=== PATIENT | female | born 1940 | race Caucasian/White ===

== ENCOUNTER → 2017-07-18 15:55 | Outpatient (CLI) | payer MEDICARE, OTHER, SELFPAY ==
[2017-07-18 16:10] LABS: Absolute Lymphocyte Count 1.85 X10^3/ul (0.83-4.51); Absolute Neutrophil Count 4.5 X10^3/uL (2.0-7.7); Basophil# 0.02 X10^3/uL; Basophil% 0.3 % (0-1); Eosinophil# 0.14 X10^3/uL; Eosinophils% 1.9 % (0-5); Hematocrit 42.4 % (37-47); Hemoglobin 13.7 g/dl (12.0-15.0); Lymphocyte # 1.85 X10^3/ul (4.0); Lymphocyte % 25.3 % (19-41); Mean Corp Hgb Conc 32.3 g/gl (32-36); Mean Corpuscular Hgb 29.4 pg (27.0-32.0); Mean Platelet Vol. 11.7 fl (6.2-12.0); Monocyte# 0.79 X10^3/uL; Monocyte% 10.8 % (0-10); Neutrophil # 4.49 X10^3/uL (2.7-7.7); Neutrophil % 61.4 % (47-70); Platelet Count 182 K/mm3 (150-450); RBC Distribution Width SD 46.1 fl (35.1-43.9); Red Blood Count 4.66 M/mm3 (4.2-5.4); White Blood Count 7.3 K/mm3 (4.4-11.0)
[2017-07-18 16:11] LABS: POSITIVE COUNT NO; POSITIVE DIFFERENTIAL NO; POSITIVE MORPHOLOGY NO
[2017-07-18 16:30] LABS: ALB/GLOB Ratio 1.2 RATIO (0.9-2.4); AST(SGOT) 23 U/L (15-37); Alanine Aminotransfer ALT/SGPT 28 U/L (13-56); Albumin, Serum 3.7 g/dL (3.2-5.0); Alkaline Phosphatase 94 U/L (45-117); Anion Gap 8 (5-15); BUN 19 mg/dL (7-18); BUN/Creat Ratio 15.1 RATIO (10-20); Calcium,Total 8.8 mg/dL (8.5-10.1); Chloride 106 mmol/L (98-107); Creatinine, Serum 1.26 mg/dL (0.55-1.02); EST Glomerular Filtration Rate 44 mL/min (>60); Est Glom Filt Rate - Afr Amer 53 mL/min (>60); Globulin 3.2 g/dL (2.2-4.2); Glucose 143 mg/dL (74-106); Potassium 4.2 mmol/L (3.5-5.1); Protein, Total 6.9 g/dL (6.4-8.2); Sodium Level 143 mmol/L (136-145)
== END ==
PROVIDERS: Family Provider Nurse Practitioner; PCP Nurse Practitioner; Visit Provider Nurse Practitioner Gerontology
DX: R06.02 Shortness of breath (principal)
CPT/HCPCS: 80053; 85025; 85379

== ENCOUNTER → 2017-07-19 08:50 | Outpatient (CLI) | payer MEDICARE, OTHER, SELFPAY ==
--- NOTE | 2017-07-19 09:23 | CT_ITS ---
STUDY: CTA CHEST REASON FOR EXAM: Female, 77 years old. Elevated d-dimer. RADIATION DOSAGE (If Supplied By Facility): CTDIvol = ( 19.28 ) mGy, DLP = ( 475.78 ) mGycm TECHNIQUE: The examination was performed with the intravenous administration of 100 ml of Isovue 370 contrast material. Post-processing of the angiographic images was performed, with multiplanar reformation and 3D reconstruction. Individualized dose optimization techniques were used for this CT. COMPARISON: None. FINDINGS: There are several nonocclusive intraluminal filling defects in branches of the left upper lobe pulmonary arterial branches in keeping with nonocclusive pulmonary emboli. Normal thoracic aorta and visualized great vessels. There is no demonstrated aortic dissection. There are calcifications of the coronary arteries. Normal mediastinum. Normal hilar regions. Normal visualized trachea and bronchi. The lungs are well expanded. Mild degree of increased linear markings at the lung bases suggesting mild bibasilar atelectasis and/or scarring. Focal linear density measuring 1.3 cm x 0.5 cm is seen in the lingular segment of the left upper lobe suggestive of scarring. Calcified granuloma in the right middle lobe. Normal pleura. Normal chest wall structures. There are degenerative changes of thoracic spine. Normal visualized upper abdomen. CT/CTA Chest W/WO Contrast IMPRESSION: Multiple small nonocclusive intraluminal filling defect seen in the branches of the left upper lobe pulmonary arterial branches. Electronically Signed: Endy Forbes MD at 14:12 EDT Tel [phone], Service support ,
--- NOTE | 2017-07-19 15:53 | VDLE_ITS ---
Reason For Study: PE RIGHT LEFT GSV is normal. GSV is normal. CFV is compressible, spontaneous, phasic, CFV is compressible, spontaneous, phasic, competent and demonstrates normal competent, and demonstrates normal augmentation. augmentation. FV is compressible, spontaneous, phasic, FV is compressible, spontaneous, phasic, competent and demonstrates normal competent and demonstrates normal augmentation. augmentation. POP V is compressible, spontaneous, phasic, POP V is compressible, spontaneous, phasic, competent and demonstrates normal competent and demonstrates normal augmentation. augmentation. T/P Trunk is compressible. T/P Trunk is compressible. PTV is compressible. PTV is compressible. RT PerV is compressible. LT PerV is compressible. Procedure Exam performed in department. A preliminary report was called and/or faxed to George Kapadia. Interpretation Summary Deep veins of the lower extremities are bilaterally patent and compressible segmentally. There is no evidence of deep vein thrombosis on either side. Valvular competence appears intact within the proximal deep venous systems bilaterally. The greater saphenous veins appear bilaterally patent and compressible segmentally. Ordering Physician: Loan Kapadia Referring Physician: Loan Kapadia Performed By: Stephanie Tinajero RVT
== END ==
PROVIDERS: Family Provider Nurse Practitioner; PCP Nurse Practitioner; Visit Provider Nurse Practitioner
DX: I26.99 Other pulmonary embolism without acute cor pulmonale (principal); R74.8 Abnormal levels of other serum enzymes
CPT/HCPCS: 71275; 93970; Q9967; A4216

== ENCOUNTER 2017-10-10 12:50 | Outpatient (RCR) | payer MEDICARE, OTHER, SELFPAY | END 2017-10-12 23:59 | LOC: DC 12:50 | PROVIDERS: Family Provider Nurse Practitioner; PCP Nurse Practitioner; Visit Provider Nurse Practitioner | DX: E11.9 Type 2 diabetes mellitus without complications (principal); Z71.3 Dietary counseling and surveillance | CPT/HCPCS: G0108 ==

== ENCOUNTER → 2017-10-25 06:21 | Outpatient (CLI) | payer MEDICARE, OTHER, SELFPAY ==
--- NOTE | 2017-10-25 11:23 | STRESSREP ---
Stress Test Report Pharmacologic myocardial perfusion stress test. 77-year-old lady with a history of dyspnea. Medications atorvastatin ramipril metoprolol. Stress protocol: Resting EKG demonstrates sinus rhythm with rate of 61 bpm normal intervals and noted resting blood pressures 118/76 centimeters of mercury. 0.4 mg of regadenoson was infused per usual protocol followed by rapid intravenous saline flush injection continuous EKG monitoring was performed. The maximum heart rate attained was 80 bpm which was 55% of maximum predicted heart rate the maximum workload was 1 metabolic equivalent. At rest there were no ST or T-wave changes noted to suggest abnormal flow reserve at peak infusion no ST or T-wave changes were noted suggest abnormal flow reserve. The resting blood pressure is 118/76 with a final blood pressure 128/70. Myocardial perfusion protocol. 11.9 mCi of technetium 99m sestamibi was injected at rest. 0.4 mg regadenoson was infused per usual protocol peak infusion 33.6 mCi of technetium 99m sestamibi was injected stress images were obtained stress and rest images were reconstructed and compared in the short axis vertical long and horizontal long axis. Gated images were also obtained pre- Perfusion SPECT analysis: Review of the stress images demonstrate normal uptake of tracer noted in all areas of the myocardium. The resting images similarly demonstrate normal uptake of tracer noted in all areas of the myocardium. No areas of reversibility are noted suggest ischemia and no previous infarct is noted. Gated SPECT analysis: The gated ejection fraction is 72%. Conclusion: Normal pharmacologic myocardial perfusion stress test. Preserved ejection fraction.
--- NOTE | 2017-10-25 11:26 | STRESSREP_ITS ---
Stress Test Report Pharmacologic myocardial perfusion stress test. 77-year-old lady with a history of dyspnea. Medications atorvastatin ramipril metoprolol. Stress protocol: Resting EKG demonstrates sinus rhythm with rate of 61 bpm normal intervals and noted resting blood pressures 118/76 centimeters of mercury. 0.4 mg of regadenoson was infused per usual protocol followed by rapid intravenous saline flush injection continuous EKG monitoring was performed. The maximum heart rate attained was 80 bpm which was 55% of maximum predicted heart rate the maximum workload was 1 metabolic equivalent. At rest there were no ST or T- wave changes noted to suggest abnormal flow reserve at peak infusion no ST or T- wave changes were noted suggest abnormal flow reserve. The resting blood pressure is 118/76 with a final blood pressure 128/70. Myocardial perfusion protocol. 11.9 mCi of technetium 99m sestamibi was injected at rest. 0.4 mg regadenoson was infused per usual protocol peak infusion 33.6 mCi of technetium 99m sestamibi was injected stress images were obtained stress and rest images were reconstructed and compared in the short axis vertical long and horizontal long axis. Gated images were also obtained pre- Perfusion SPECT analysis: Review of the stress images demonstrate normal uptake of tracer noted in all areas of the myocardium. The resting images similarly demonstrate normal uptake of tracer noted in all areas of the myocardium. No areas of reversibility are noted suggest ischemia and no previous infarct is noted. Gated SPECT analysis: The gated ejection fraction is 72%. Conclusion: Normal pharmacologic myocardial perfusion stress test. Preserved ejection fraction.
== END ==
PROVIDERS: Family Provider Nurse Practitioner; PCP Nurse Practitioner; Visit Provider Internal Medicine Pulmonary Disease
DX: R06.00 Dyspnea, unspecified (principal)
CPT/HCPCS: 78452; 93017; A9500; A4216; J2785

== ENCOUNTER 2017-11-07 09:32 | Outpatient (RCR) | payer MEDICARE, OTHER, SELFPAY | END 2017-11-12 23:59 | LOC: DC 09:32 | PROVIDERS: Family Provider Nurse Practitioner; PCP Nurse Practitioner; Visit Provider Nurse Practitioner | DX: E11.9 Type 2 diabetes mellitus without complications (principal); Z71.3 Dietary counseling and surveillance | CPT/HCPCS: 97802 ==

== ENCOUNTER 2018-01-09 10:00 | Outpatient (RCR) | payer MEDICARE, OTHER, SELFPAY | END 2018-01-12 23:59 | LOC: DC 10:00 | PROVIDERS: Family Provider Nurse Practitioner; PCP Nurse Practitioner; Visit Provider Nurse Practitioner | DX: E11.9 Type 2 diabetes mellitus without complications (principal); Z71.3 Dietary counseling and surveillance | CPT/HCPCS: 97803; G0109 ==

== ENCOUNTER 2018-01-16 08:41 | Outpatient (RCR) | payer MEDICARE, OTHER, SELFPAY | END 2018-02-12 23:59 | LOC: DC 08:41 | PROVIDERS: Family Provider Nurse Practitioner; PCP Nurse Practitioner; Visit Provider Nurse Practitioner | DX: E11.9 Type 2 diabetes mellitus without complications (principal); Z71.3 Dietary counseling and surveillance | CPT/HCPCS: G0109 ==

== ENCOUNTER 2018-03-13 10:00 | Outpatient (RCR) | payer MEDICARE, OTHER, SELFPAY | END 2018-03-14 23:59 | LOC: DC 10:00 | PROVIDERS: Family Provider Nurse Practitioner; PCP Nurse Practitioner; Visit Provider Nurse Practitioner | DX: E11.9 Type 2 diabetes mellitus without complications (principal); Z71.3 Dietary counseling and surveillance | CPT/HCPCS: 97803; G0109 ==

== ENCOUNTER → 2018-06-05 09:35 | Outpatient (CLI) | payer MEDICARE, OTHER, SELFPAY ==
--- NOTE | 2018-06-05 09:38 | BI_ITS ---
MAMMOGRAPHY - BILATERAL SCREENING REASON FOR EXAM: Female, 78 years old. Routine annual screening examination. PERTINENT HISTORY: Non-contributory. Right breast nipple tenderness. TECHNIQUE: Digital bilateral breast cholo (3D mammographic acquisition) in the CC and MLO projections. 2-D mediolateral oblique (MLO) and craniocaudad (CC) views of both breasts were obtained. CAD: Full Field Digital Mammography with Computer Added Detection was performed. COMPARISON: Comparison is made with prior study dated March 27, 2017 and January 23, 2016. FINDINGS: Breast Composition: There are scattered areas of fibroglandular density. There are no dominant masses or suspicious calcifications. Stable benign-appearing bilateral axillary lymph nodes. No other significant abnormalities are identified. There has been no significant change since the prior study. BI/SCREENING MAMM (CAD), BILAT IMPRESSION: Stable bilateral screening mammogram. Yearly follow-up mammogram recommended. (A) ASSESSMENT CATEGORY: BIRADS Category 2: Benign. A letter regarding these results will be sent to the patient by the facility within 30 days. Approximately 10% of breast cancers are not detected by mammography. A normal mammogram should not delay biopsy of a clinically suspicious abnormality. [id number] Electronically Signed: Endy Forbes MD at 12:30 EST , Service support ,
--- NOTE | 2018-06-05 09:40 | BD_ITS ---
STUDY: DUAL ENERGY X-RAY ABSORPTIOMETRY / DXA REASON FOR EXAM: Female, 78 years old. Early menopause. Loss of height. TECHNIQUE: Bone Mineral Density (BMD) measurements of lumbar spine and bilateral hips were obtained. COMPARISON: Comparison is made with prior study dated June 08, 2014. FINDINGS: Lumbar Spine (L1-L4): g/cm2 (1.218) / T-score (0.3) / Z-score (2.1) Findings are suggestive of normal bone density with a low fracture risk. Left Femur Total: g/cm2 (0.985) / T-score (0.2) / Z-score (1.7) Left Femoral Neck: g/cm2 (0.853) / T-score (-1.3) / Z-score (0.7) Right Femur Total: g/cm2 (0.947) / T-score (-0.5) / Z-score (1.4) Right Femoral Neck: g/cm2 (0.914) / T-score (-0.9) / Z-score (1.2) The T-Scores on the most recent prior examination were: Lumbar Spine (L1-L4): There has been worsening of bone density since the previous examination. Left Femur Total: which represents an improvement of 1.5%. Right Femur Total: which represents a worsening of 2.5%. BD/Dexa Bone Density Study IMPRESSION: The patient is considered osteopenic as outlined below according to World Parker Organization (WHO) criteria with a low fracture risk. There has been worsening of bone density since the previous examination. Reference Information: The T-score is the number of standard deviations above or below the standard which is normal for young adults at their peak bone mineral density. The World Health Organization (WHO) interprets the T-scores as follows: Above -1 Normal bone density Between -1 and -2.5 Osteopenia Equal to / or below -2.5 Osteoporosis As a practical clinical guideline, osteopenia may be graded as follows: Mild -1 through -1.5 Moderate -1.6 through -2.0 Severe -2.1 through -2.4 The Z-score is the number of standard deviations above or below age-matched controls. A Z-score of less than -1.5 would be considered abnormal. References: 1. NIH Osteoporosis and Related Bone Diseases http://www.osteo.org 2. International Society for Clinical Densitometry http://www.iscd.org 3. National Osteoporosis Foundation http://www.nof.org Electronically Signed: Endy Forbes MD at 12:51 EST , Service support ,
== END ==
PROVIDERS: Family Provider Nurse Practitioner; PCP Nurse Practitioner; Visit Provider Nurse Practitioner
DX: Z12.31 Encounter for screening mammogram for malignant neoplasm of breast (principal); Z78.0 Asymptomatic menopausal state; M85.80 Other specified disorders of bone density and structure, unspecified site
CPT/HCPCS: 77063; 77067; 77080

== ENCOUNTER 2018-06-19 13:18 | Outpatient (RCR) | payer MEDICARE, OTHER, SELFPAY | END 2018-06-19 23:59 | disposition home or self-care (01) | LOC: DC 13:18 | PROVIDERS: Family Provider Nurse Practitioner; PCP Nurse Practitioner; Visit Provider Nurse Practitioner | DX: E11.9 Type 2 diabetes mellitus without complications (principal); Z71.3 Dietary counseling and surveillance | CPT/HCPCS: G0109 ==

== ENCOUNTER → 2018-07-21 | Outpatient (CLI) | payer MEDICARE, OTHER, SELFPAY ==
[2018-07-21 12:33] LABS: Homocysteine 7.4 umol/L (3.2-10.7)
[2018-07-21 12:43] LABS: Absolute Lymphocyte Count 1.35 X10^3/ul (0.83-4.51); Absolute Neutrophil Count 3.1 X10^3/uL (2.0-7.7); Basophil# 0.01 X10^3/uL; Basophil% 0.2 % (0-1); Eosinophil# 0.11 X10^3/uL; Eosinophils% 2.2 % (0-5); Hematocrit 43.8 % (37-47); Hemoglobin 13.9 g/dl (12.0-15.0); Lymphocyte # 1.35 X10^3/ul (4.0); Lymphocyte % 26.6 % (19-41); Mean Corp Hgb Conc 31.7 g/gl (32-36); Mean Corpuscular Volume 91.3 fL (81-99); Mean Platelet Vol. 11.4 fl (6.2-12.0); Monocyte# 0.53 X10^3/uL; Monocyte% 10.4 % (0-10); Neutrophil # 3.08 X10^3/uL (2.7-7.7); Neutrophil % 60.6 % (47-70); Platelet Count 173 K/mm3 (150-450); RBC Distribution Width CV 14.2 % (11.6-14.6); RBC Distribution Width SD 47.5 fl (35.1-43.9); White Blood Count 5.1 K/mm3 (4.4-11.0)
[2018-07-21 12:52] LABS: POSITIVE COUNT NO; POSITIVE DIFFERENTIAL NO; POSITIVE MORPHOLOGY NO
[2018-07-21 13:20] LABS: AST(SGOT) 23 U/L (15-37); Alanine Aminotransfer ALT/SGPT 26 U/L (13-56); Albumin, Serum 3.7 g/dL (3.2-5.0); Alkaline Phosphatase 86 U/L (45-117); Anion Gap 6 (5-15); BUN 13 mg/dL (7-18); BUN/Creat Ratio 10.7 RATIO (10-20); Calcium,Total 8.8 mg/dL (8.5-10.1); Chloride 107 mmol/L (98-107); Cholesterol 157 mg/dL (200); Creatinine, Serum 1.21 mg/dL (0.55-1.02); EST Glomerular Filtration Rate 46 mL/min (>60); Est Glom Filt Rate - Afr Amer 55 mL/min (>60); Globulin 3.6 g/dL (2.2-4.2); Glucose 140 mg/dL (74-106); High Density Lipoprotein 51 mg/dL; Protein, Total 7.3 g/dL (6.4-8.2); Sodium Level 141 mmol/L (136-145); Thyroid Stim Hormone (TSH) 1.46 uIU/mL (0.358-3.74); Triglycerides 106 mg/dL; Very Low Density Lipoprotein 21 mg/dL (5-40)
[2018-07-25 17:38] LABS: Dilute Prothrombin Time (dPT) 46.8 sec (0.0-55.0); Dilute Russell Viper Venom 36.7 sec (0.0-47.0); PTT-LA 35.8 sec (0.0-51.9); Thrombin Time 18.7 sec (0.0-23.0); dPT Confirm Ratio 1.08 Ratio (0.00-1.40)
[2018-07-26 15:37] LABS: Antithrombin 3 Function 88 % (75-135); Interpretation Comment: (.); Protein C Antigen 98 % (60-150)
== END | disposition home or self-care (01) ==
PROVIDERS: Family Provider Nurse Practitioner; PCP Nurse Practitioner; Referring Provider Internal Medicine Pulmonary Disease; Visit Provider Internal Medicine Pulmonary Disease
DX: E11.9 Type 2 diabetes mellitus without complications (principal); Z79.899 Other long term (current) drug therapy; Z86.711 Personal history of pulmonary embolism
CPT/HCPCS: 36415; 80053; 80061; 81240; 81241; 83090; 84443; 85025; 85300; 85302; 86147

== ENCOUNTER → 2018-08-01 | Outpatient (CLI) | payer MEDICARE, OTHER, SELFPAY ==
--- NOTE | 2018-08-01 07:19 | CT_ITS ---
STUDY: CT ABDOMEN AND PELVIS WITH CONTRAST REASON FOR EXAM: Female, 78 years old. Incisional pain. Redness about the pelvic incision. Status post hysterectomy, 1969. RADIATION DOSAGE (If Supplied By Facility): CTDIvol = ( 19.21 ) mGy, DLP = ( 1141.82 ) mGycm TECHNIQUE: Transaxial images were obtained from the dome of the diaphragm to the symphysis pubis with oral contrast. 100mL IV/Oral Isovue 300 was administered. Sagittal and coronal images were reconstructed. Individualized dose optimization techniques were used for this CT. COMPARISON: None. FINDINGS: The visualized lung bases are unremarkable. The visualized portions of the heart are within normal limits. Normal liver. Normal gallbladder and extrahepatic biliary system. Normal spleen. Normal pancreas. Normal bilateral adrenal glands. Normal right kidney. Normal left kidney. Normal visualized stomach. Normal small intestine. There is thickening of the cyst sigmoid colon wall with multiple diverticuli. Question mild diverticulitis. The colon is otherwise grossly unremarkable. There is non-visualization of the appendix. There is diffuse atherosclerotic calcification of the abdominal aorta, without a demonstrated aneurysm. Normal inferior vena cava. Normal retroperitoneum. Normal urinary bladder. Status post hysterectomy. The vaginal cough is grossly normal. There are multiple phleboliths in the pelvis. This are soft tissue densities along both pelvic sidewalls thought to be retained ovaries. No free air or free fluid is seen within the peritoneal cavity. Umbilical hernia of omental fat. In the right inguinal region. There is a linear density 4 cm in length which appears to extend from the subcutaneous fat into the abdominal cavity. This is best seen on images 96 through 99. There is adjacent right inguinal hernia There are diffuse degenerative changes of the visualized lumbar spine. CT/Abdomen/Pelvis WITH Contrast IMPRESSION: 1. Linear density in the right inguinal area with associated small inguinal hernia. Question foreign body. 2. Status post hysterectomy without other evidence of abdominal or pelvic abnormality. Electronically Signed: Maximo Morgan DO at 22:37 EDT Tel [phone], Service support ,
== END | disposition home or self-care (01) ==
LOC: CT 07:17
PROVIDERS: Family Provider Nurse Practitioner; PCP Nurse Practitioner; Referring Provider Obstetrics & Gynecology; Visit Provider Obstetrics & Gynecology
DX: G89.18 Other acute postprocedural pain (principal)
CPT/HCPCS: 74177; Q9967

== ENCOUNTER → 2018-08-05 11:32 | Outpatient (CLI) | payer MEDICARE, OTHER, SELFPAY ==
--- NOTE | 2018-08-05 12:28 | VDLE_ITS ---
Reason For Study: SHORTNESS OF BREATH RIGHT LEFT GSV is normal. GSV is normal. CFV is compressible, spontaneous, phasic, CFV is compressible, spontaneous, phasic, competent and demonstrates normal competent, and demonstrates normal augmentation. augmentation. FV is compressible, spontaneous, phasic, FV is compressible, spontaneous, phasic, competent and demonstrates normal competent and demonstrates normal augmentation. augmentation. POP V is compressible, spontaneous, phasic, POP V is compressible, spontaneous, phasic, competent and demonstrates normal competent and demonstrates normal augmentation. augmentation. T/P Trunk is compressible. T/P Trunk is compressible. PTV is compressible. PTV is compressible. RT PerV is compressible. LT PerV is compressible. Procedure Exam performed in department. A preliminary report was called and/or faxed to Dr. Crump. Interpretation Summary Deep veins of the lower extremities are bilaterally patent and compressible segmentally. There is no evidence of deep vein thrombosis on either side. Valvular competence appears intact within the proximal deep venous systems bilaterally. The greater saphenous veins appear bilaterally patent and compressible segmentally. Ordering Physician: Yosef Crump Referring Physician: Yosef Crump Performed By: Stephanie Tinajero RVT
[2018-08-05 13:22] LABS: D-Dimer Quantitative (DVT/PE) 1.38 FEU/ug/m (0.27-0.49)
== END ==
PROVIDERS: Family Provider Nurse Practitioner; PCP Nurse Practitioner; Referring Provider Internal Medicine Pulmonary Disease; Visit Provider Internal Medicine Pulmonary Disease
DX: R06.00 Dyspnea, unspecified (principal); Z86.711 Personal history of pulmonary embolism
CPT/HCPCS: 36415; 85379; 93970

== ENCOUNTER → 2019-01-28 12:04 | Outpatient (CLI) | payer MEDICARE, OTHER, SELFPAY ==
[2018-08-11 13:58] VITALS: BMI 32.5
[2019-01-28 13:13] LABS: PTHIN 56.3 pg/mL (18.4-80.1)
[2019-01-28 13:16] LABS: Albumin, Serum 3.8 g/dL (3.2-5.0); BUN 16 mg/dL (7-18); BUN/Creat Ratio 12.4 RATIO (10-20); Calcium,Total 9.4 mg/dL (8.5-10.1); Chloride 104 mmol/L (98-107); Creatinine, Serum 1.29 mg/dL (0.55-1.02); EST Glomerular Filtration Rate 42 mL/min (>60); Est Glom Filt Rate - Afr Amer 51 mL/min (>60); Glucose 177 mg/dL (74-106); Phosphorus 2.3 mg/dL (2.5-4.9); Potassium 4.1 mmol/L (3.5-5.1); Sodium Level 139 mmol/L (136-145)
[2019-01-28 13:18] LABS: Microalbumin,Random Urine 5.3 mg/L (NO RANGE EST.); Microalbumin:Creatinine Ratio 15.6 mg/g CRE (<30 mg/g CRE)
== END ==
PROVIDERS: Family Provider Nurse Practitioner; PCP Nurse Practitioner; Visit Provider Internal Medicine Nephrology
DX: E11.22 Type 2 diabetes mellitus with diabetic chronic kidney disease (principal); N18.3 Chronic kidney disease, stage 3 (moderate)
CPT/HCPCS: 36415; 80069; 82043; 82570; 83970

== ENCOUNTER → 2019-04-27 11:39 | Outpatient (CLI) | payer MEDICARE, OTHER, SELFPAY ==
[2018-08-11 13:58] VITALS: BMI 32.5
[2019-04-27 13:12] LABS: Albumin, Serum 3.7 g/dL (3.2-5.0); BUN 15 mg/dL (7-18); BUN/Creat Ratio 10.9 RATIO (10-20); Calcium,Total 9.4 mg/dL (8.5-10.1); Chloride 107 mmol/L (98-107); Creatinine, Serum 1.38 mg/dL (0.55-1.02); EST Glomerular Filtration Rate 39 mL/min (>60); Est Glom Filt Rate - Afr Amer 47 mL/min (>60); Glucose 179 mg/dL (74-106); Phosphorus 2.9 mg/dL (2.5-4.9); Potassium 4.5 mmol/L (3.5-5.1); Sodium Level 141 mmol/L (136-145)
== END ==
PROVIDERS: Family Provider Nurse Practitioner; PCP Nurse Practitioner; Referring Provider Internal Medicine Nephrology; Visit Provider Internal Medicine Nephrology
DX: N18.3 Chronic kidney disease, stage 3 (moderate) (principal)
CPT/HCPCS: 36415; 80069

== ENCOUNTER → 2019-07-27 08:50 | Outpatient (CLI) | payer MEDICARE, OTHER, SELFPAY ==
[2018-08-11 13:58] VITALS: BMI 32.5
--- NOTE | 2019-07-27 09:12 | BI_ITS ---
MAMMOGRAPHY - BILATERAL DIAGNOSTIC REASON FOR EXAM: Female, 79 years old. Lateral right breast pain. PERTINENT HISTORY: Non-contributory. TECHNIQUE: Digital bilateral breast cholo (3D mammographic acquisition) in the CC and MLO projections. 2-D mediolateral oblique (MLO) and craniocaudad (CC) views of both breasts were obtained. CAD: Full Field Digital Mammography with Computer Added Detection was performed. COMPARISON: Comparison is made with prior study dated June 05, 2018 and March 27, 2017. FINDINGS: Breast Composition: There are scattered areas of fibroglandular density. There are no dominant masses or suspicious calcifications. Stable benign-appearing bilateral axillary lymph nodes. No other significant abnormalities are identified. There has been no significant change since the prior study. BI/DIAG MAMM W/CAD, BILAT IMPRESSION: Stable bilateral diagnostic mammogram. With the patient''s history of right lateral breast pain, correlation with ultrasound is recommended. ASSESSMENT CATEGORY: BIRADS Category 0: Incomplete. Need additional imaging evaluation. A letter regarding these results will be sent to the patient by the facility within 30 days. Approximately 10% of breast cancers are not detected by mammography. A normal mammogram should not delay biopsy of a clinically suspicious abnormality. Electronically Signed: Endy Forbes, at 10:36 EDT , Service support ,
--- NOTE | 2019-07-27 09:12 | US_ITS ---
STUDY: ULTRASOUND BREAST - RIGHT REASON FOR EXAM: Female, 79 years old. Pain in the right breast. TECHNIQUE: Axial and longitudinal images of the RIGHT breast were performed with a high resolution ultrasound transducer. # OF IMAGES: 34 COMPARISON: Comparison is made with prior mammogram done earlier in the day. FINDINGS: RIGHT Breast: The inferior lateral aspect of the right breast was examined by ultrasound. Minimally dilated ducts. US/Breast Limited Unilateral IMPRESSION: Minimally dilated ducts. ASSESSMENT CATEGORY: BIRADS Category 2: Benign. A letter regarding these results will be sent to the patient by the facility within 30 days. Electronically Signed: Endy Forbes, at 10:38 EDT , Service support ,
== END ==
PROVIDERS: PCP Nurse Practitioner; Referring Provider Nurse Practitioner; Visit Provider Nurse Practitioner
DX: N64.4 Mastodynia (principal)
CPT/HCPCS: 76642; 77062; 77066; G0279

== ENCOUNTER 2019-07-31 14:12 | Inpatient (IN) | payer MEDICARE, OTHER, SELFPAY ==
[2018-08-11 13:58] VITALS: BMI 32.5
[2019-07-31] VITALS (9 sets, daily range): BP systolic 139–157; BP diastolic 55–83; PULSE 60–77; RESP 16–22; TEMP 36.6–36.9; O2SAT 95–98; BMI 33.9; BMI 34.2
--- NOTE | 2019-07-31 14:18 | EKG12_ITS ---
Test Reason : CHEST PAIN Blood Pressure : / mmHG Vent. Rate : 067 BPM Atrial Rate : 067 BPM P-R Int : 116 ms QRS Dur : 092 ms QT Int : 402 ms P-R-T Axes : 035 -16 007 degrees QTc Int : 424 ms Normal sinus rhythm Left ventricular hypertrophy with repolarization abnormality Abnormal ECG Confirmed by TRACY CORRIGAN, RIAN ([id number]), writer editor CASSIA TRIANA ([id number]) on 08/04/2019 8:57:17 AM Referred By: HA Confirmed By:RIAN MOLINA MD
--- NOTE | 2019-07-31 14:42 | ED.VISSUMM ---
- ER Visit Summary Date of Service: 07/31/19 Chief Complaint: Planing of exertional dyspnea and exertional chest pain for months. History of Present Illness: The patient is a 79 F. Prior PE. Also reflux, diabetes, hypertension high cholesterol. Multiple family members with cardiac disease. Patient was on Xarelto for several months for prior PE. She denies any recent travel, surgery or immobilization. This is not pleuritic in nature. Leg pain or swelling. She states since March with exertion she is short of breath. Is progressively gotten worse. Also with exertion she gets chest pain. With rest he gets better. Sitting she is not short of breath or having any pain. Physical Examination: Older female no acute distress vital signs are stable afebrile. Pulse ox 95% on room air no signs of hypoxia. H EENT exam unremarkable. Neck nontender. Lungs clear to auscultation bilaterally. Heart regular rhythm no murmur. Abdomen soft nontender normal bowel sounds no peritoneal signs. Extremities moves all 4. Calves nontender without edema or cords. Neurologically she is awake alert with no focal motor deficits. Test Results: Chest x-ray portable 1 view shows normal cardiac silhouette mediastinum. No acute abnormality. EKG normal sinus rhythm rate of 67 no acute signs of MO or ischemia. Unchanged from prior EKG from 3 years ago. CBC normal. Chemistries unremarkable. Creatinine 1.41. Troponin normal. D-dimer elevated at 1.45. PT/INR PTT unremarkable. Due to the elevated d-dimer and her history of a PE a CTA of the chest was ordered and shows multiple left lower lobe pulmonary emboli and the secondary arterial branches. This was read by the radiologist and reviewed by me. Emergency Department Course and Treatment: Patient with a very concerning story for exertional dyspnea and chest pain for months that is getting worse. This sounds possibly cardiac however she also has had a prior PE which is in the differential diagnosis. Patient treated with subcu Lovenox for pulmonary emboli. I am still concerned by her story of exertional dyspnea and exertional shortness of breath for about 4 to 5 months. And discussed also a secondary cardiac etiology with the hospitalist. She will be placed in the PCU. Treatment Plan: Anticoagulation and admission I have the hospitalist on page. Disposition: Admission Impression: Exertional chest pain shortness of breath Acute left lower lobe PE's History of prior PE, diabetes, hypertension This note was generated with [employer] dictation software. It may contain incorrect words, spelling, and punctuation that were not noted in review of the chart prior to signing ED Disposition - Plan for ED Patient: Referrals: Loan Kapadia, [employer] [Primary Care Provider] -
[2019-07-31 14:47] LABS: Absolute Lymphocyte Count 1.57 X10^3/uL (0.83-4.51); Absolute Neutrophil Count 4.2 X10^3/uL (2.0-7.7); Basophil# 0.02 X10^3/uL; Basophil% 0.3 % (0-1); Eosinophil# 0.15 X10^3/uL; Eosinophils% 2.3 % (0-5); Hemoglobin 14.5 g/dL (12.0-15.0); Lymphocyte # 1.57 X10^3/ul (4.0); Lymphocyte % 23.8 % (19-41); Mean Corp Hgb Conc 32.2 g/dL (32-36); Mean Corpuscular Hgb 29.4 pg (27.0-32.0); Mean Corpuscular Volume 91.1 fL (81-99); Mean Platelet Vol. 11.2 fl (6.2-12.0); Monocyte# 0.63 X10^3/uL; Monocyte% 9.5 % (0-10); NRBC Flagged by Analyzer 0 % (0-5); Neutrophil # 4.21 X10^3/uL (2.7-7.7); Neutrophil % 63.6 % (47-70); Platelet Count 180 K/mm3 (150-450); RBC Distribution Width CV 13.4 % (11.6-14.6); RBC Distribution Width SD 45.1 fl (35.1-43.9); Red Blood Count 4.94 M/mm3 (4.2-5.4); White Blood Count 6.6 K/mm3 (4.4-11.0)
--- NOTE | 2019-07-31 14:50 | RAD_ITS ---
STUDY: X-RAY CHEST REASON FOR EXAM: Female, 79 years old. SOB AND CHEST PAIN ON EXERTION -- HX OF PE TECHNIQUE: Single AP portable view of the chest. COMPARISON: None. FINDINGS: A calcified granuloma is seen in the right lung upper lobe measures 7 mm. There is no demonstrated pleural abnormality. Normal size heart. Normal mediastinum and soto. Normal visualized pulmonary arteries. Normal visualized aortic arch and descending thoracic aorta. There are diffuse degenerative changes of the visualized thoracic spine. Normal visualized ribs, clavicles, and shoulders. There is no demonstrated abnormality of the visualized soft tissue structures of the upper abdomen. RAD/Chest 1 View (Portable) IMPRESSION: No demonstrated acute cardiopulmonary process. Electronically Signed: Eliot Acevedo, at 15:04 EDT Tel , Service support ,
[2019-07-31] MEDS: Aspirin 81 MG TAB.CHEW 324 MG PO (14:54)
[2019-07-31 14:56] LABS: Anion Gap 5 (5-15); BUN 17 mg/dL (7-18); BUN/Creat Ratio 12.1 RATIO (10-20); Calcium,Total 9.2 mg/dL (8.5-10.1); Chloride 106 mmol/L (98-107); Creatinine, Serum 1.41 mg/dL (0.55-1.02); EST Glomerular Filtration Rate 38 mL/min (>60); Est Glom Filt Rate - Afr Amer 46 mL/min (>60); Estimated Creatinine Clearance 27.94 ml/min; Glucose 190 mg/dL (74-106); Potassium 4.1 mmol/L (3.5-5.1); Sodium Level 140 mmol/L (136-145)
[2019-07-31 15:06] LABS: Prothrombin Time (Protime)PT. 12.6 SECONDS (11.7-14.9)
--- NOTE | 2019-07-31 15:07 | CT_ITS ---
We are attempting to reach an attending provider to discuss findings. An addendum with communication details will be sent when the communication is complete. STUDY: CTA CHEST REASON FOR EXAM: Female, 79 years old. Chest pain on exertion ELEVATED D-DIMER with history of PE in past RADIATION DOSAGE (If Supplied By Facility): CTDIvol = ( 11.09 ) mGy, DLP = ( 475.94 ) mGycm TECHNIQUE: The examination was performed with the intravenous administration of 100ml isovue 370. Post-processing of the angiographic images was performed, with multiplanar reformation and 3D reconstruction. Individualized dose optimization techniques were used for this CT. COMPARISON: None. FINDINGS: There are emboli in the medial aspect of the left lower lobe secondary pulmonary arterial branches see images 87 through 99/232 series 2. Normal enhancement of the main pulmonary artery and right and left pulmonary arteries. A 7 mm calcified granulomas present in the lateral subpleural region and inferior aspect of the right upper lobe. Both lungs are hyperinflated compatible with COPD. Some mild cystic emphysematous changes are present. Patchy groundglass edema is present throughout both lungs. No demonstrated focal consolidation. No pleural effusion is seen. Linear interstitial scarring is present in the lingula and right middle lobe. There is atherosclerotic calcification of the aortic arch with tortuosity. There is no demonstrated aortic dissection. Normal heart size and pericardium. Normal mediastinum. Normal hilar regions. Normal visualized trachea and bronchi. Normal chest wall structures. There are degenerative changes of thoracic spine. No demonstrated acute or significant process visualized upper abdomen. Splenic calcifications noted. Small hiatal hernia and chronic lobularity and atrophy of the renal cortices noted. CT/CTA Chest W/WO Contrast IMPRESSION: 1. Pulmonary artery emboli in the medial aspect of the left lower lobe secondary arterial branches see images 87 through 99/232 series 2. 2. COPD/emphysema and scattered fibrotic changes 3. Mild groundglass edema both lungs. Electronically Signed: Gulshan Ramirez MD at 17:09 EDT , Service support ,
[2019-07-31 15:08] LABS: D-Dimer Quantitative (DVT/PE) 1.45 FEU/ug/m (0.27-0.49)
[2019-07-31] MEDS: Enoxaparin 100 MG/ML Syringe 90 MG SC (17:36)
--- NOTE | 2019-07-31 17:48 | PCM.HP.STD ---
Problem List (1) Acute left lung PE Status: Acute (2) History of pulmonary embolism Status: Chronic (3) Benign hypertension Status: Chronic (4) Type II diabetes mellitus Status: Chronic (5) HLD (hyperlipidemia) Status: Chronic (6) Overactive bladder Status: Chronic (7) Alonzo esophagus Status: Chronic History of Present Illness Date of Admission: 07/31/19 Chief Complaint: Shortness of breath. The patient is a 79 year old F with past medical history as mentioned above presented to the emergency room because of shortness of breath. Her symptoms started almost 3 months ago, has been progressive, exertional shortness of breath, initially was on moderate exertion and it has been progressive and over the last several days, it has been even more with minimal activity, relieved with rest, aggravated by more activity and associated with chest pain. The pain is on the right side of her chest, mild pain, not radiating described as chest tightness and also relieved with rest. She denied cough or sputum production. She denied fever or chills. She denied sick contacts or recent travel. She had a history of pulmonary embolism treated ago for which she was on Xarelto for 6 months. She stated that her symptoms this time is similar to the symptoms that she had when she had her blood clots 2 years ago. She denied leg swelling or edema. Denied leg pain. She denied fever or chills. In the emergency department, her blood pressure was slight elevated, other vital signs are stable. Her routine blood work was remarkable for creatinine of 1.41, blood glucose of 190, otherwise unremarkable. EKG revealed normal sinus rhythm without evidence of acute, changes. Troponin was negative. Chest x-ray showed no acute findings. CTA chest done because of elevated d-dimer and revealed left lower lobe pulmonary emboli. She is being admitted for acute left lower lobe pulmonary emboli in context of history of PEs 2 years ago and also for atypical chest pain for evaluation. Past Medical History Past Medical History (Chronic Problems): Chronic Problems (Last Updated 07/31/19 @ 17:[address] Harpreet Cornell MD) History of pulmonary embolism (Chronic) Benign hypertension (Chronic) Type II diabetes mellitus (Chronic) HLD (hyperlipidemia) (Chronic) Overactive bladder (Chronic) Alonzo esophagus (Chronic) Medical History: Medical History (Last Updated 07/31/19 @ 17:[address] Harpreet Cornell MD) Benign hypertension (Chronic) I10 Type II diabetes mellitus (Chronic) E11.9 HLD (hyperlipidemia) (Chronic) E78.5 Overactive bladder (Chronic) N32.81 Alonzo esophagus (Chronic) K22.70 History of blood clots Z86.718 Allergies liraglutide [From Victoza] Adverse Reaction (Verified 07/31/19 14:16) Other Home Medications: Ambulatory Orders Medication Instructions Recorded Ramipril [Altace] 5 mg PO BID 02/26/17 Sitagliptin Phosphate [Januvia] 100 mg PO DAILY 02/26/17 ascorbic acid (vitamin C) 500 mg 500 mg PO DAILY cap 08/11/18 capsule aspirin 81 mg tablet,delayed 81 mg PO DAILY 08/11/18 release glimepiride 2 mg tablet 2 mg PO QAM 08/11/18 lactobacillus combination no.8 3 3,000 mmu cells PO DAILY 08/11/18 billion cell capsule Atorvastatin Calcium [Lipitor] 10 mg PO QHS 07/31/19 Ergocalciferol (Vitamin D2) 50,000 unit PO QWEEK 07/31/19 [Vitamin D2] Metoprolol Tartrate 25 mg PO BID 07/31/19 Mirabegron [Myrbetriq] 50 mg PO DAILY 07/31/19 Omeprazole 20 mg PO DAILY 07/31/19 Pioglitazone [Actos] 30 mg PO DAILY 07/31/19 Vitamin E 400 unit PO DAILY 07/31/19 Surgical History: Surgical History (Last Updated 08/11/18 @ 13:58 by Deepali Artis) History of hysterectomy Z90.710 Previous back surgery Z98.890 Surgical History: appendectomy, hysterectomy, - - Partial hysterectomy, appendectomy, back surgery. 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 Denies: Edema, Heaviness, Light Headedness, Orthopnea, Paroxysmal Noc. Dyspnea, Syncope Respiratory: Reports: Pleuritic Pain, Shortness of Breath, Shortness of breath upon exertion. Denies: Cough, Sputum production, Wheezing Gastrointestinal: Reports: Nausea. Denies: Abdominal Pain, Constipation, Diarrhea, Vomiting Genitourinary: Denies: Dysuria, Frequency, Hematuria Musculoskeletal: Denies: Arm Pain, Back Pain, Foot Pain Skin: Denies: Dryness, Rash Neurological: Denies: Balance problems, Double vision, Change in Speech, Slurred speech, Confusion, Focal weakness, Headaches, Incoordination Psychiatric: Denies: Anxiety, Depression Endocrine: Denies: Change in Body Habitus, Polydipsia, Polyuria VTE Information - Inpt Only VTE Present on Admission: Yes VTE Mechan Device Prophylaxis: None VTE Pharm Prophylaxis ordered?: No Patient Problems: Active and Suspected Problems (Last Updated 07/31/19 @ 17:[address] Harpreet Cornell MD) Acute left lung PE (Acute) - Physical Exam Vitals/I&O's: Vital Signs Temp Pulse Resp BP Pulse Ox 97.8 F 73 19 H 146/55 H 98 07/31/19 17:32 07/31/19 17:32 07/31/19 17:32 07/31/19 17:32 07/31/19 17:32 Oxygen Delivery Method Room Air Weight: 197 lb 8.547 oz Body Mass Index (BMI) 33.9 Finger Stick Blood Glucose 110 General: Alert, Oriented x3, Cooperative, No apparent distress HEENT: Atraumatic, PERRLA, EOMI, Normocephalic Oral: Moist Mucosa, No Gingival or Mucosal Lesions/ Ulcerations Neck: Supple, No JVD, Negative Carotid Bruits, Trachea Midline, Thyroid Normal Size and Texture Lungs: Clear to auscultation, Normal air movement, No rhonchi, No wheeze, No rales, Diminished Cardiovascular: Regular rate, Regular Rhythm, Normal S1, Normal S2, PMI Normal Abdomen: Bowel Sounds Present, Soft, Non Tender, Non-Distended, No Hepato-splenomegaly, Obese Extremities: No clubbing, No cyanosis, No edema Skin: No rashes, No breakdown Lymphatic: No Cervical, Supraclavicular, or Inguinal Adenopathy Neurological: Cranial nerves II-XII grossly intact, Motor Exam 5/5 strength throughout Psych/Mental Status: Normal Affect, Appropriate, Alert and oriented to time, place, person, mood and affect Laboratory Results 07/31/19 14:33: WBC 6.6, RBC 4.94, Hgb 14.5, Hct 45.0, MCV 91.1, MCH 29.4, MCHC 32.2, RDW Std Deviation 45.1 H, RDW Coeff of Fredy 13.4, Plt Count 180, MPV 11.2, Immature Gran % (Auto) 0.500, Neut % (Auto) 63.6, Lymph % (Auto) 23.8, Weakley % (Auto) 9.5, Eos % (Auto) 2.3, Baso % (Auto) 0.3, Absolute Neuts (auto) 4.2, Absolute Lymphs (auto) 1.57, Nucleated RBC % 0 07/31/19 14:33: Sodium 140, Potassium 4.1, Chloride 106, Carbon Dioxide 29.0, Anion Gap 5, BUN 17, Creatinine 1.41 H, Estim Creat Clear Calc 27.94, Est GFR (MDRD) Af Amer 46 L, Est GFR (MDRD) Non-Af 38 L, BUN/Creatinine Ratio 12.1, Glucose 190 H, Calcium 9.2, Troponin I < 0.015 07/31/19 14:36: PT 12.6, INR 1.0, D-Dimer Quant (PE/DVT) 1.45 H* Clinical Impression(s) from Imaging Studies Chest X-Ray 07/31/19 14:50 IMPRESSION: No demonstrated acute cardiopulmonary process. Electronically Signed: Eliot Acevedo at 15:04 EDT Tel , Service support , Chest CTA 07/31/19 15:07 IMPRESSION: 1. Pulmonary artery emboli in the medial aspect of the left lower lobe secondary arterial branches see images 87 through 99/232 series 2. 2. COPD/emphysema and scattered fibrotic changes 3. Mild groundglass edema both lungs. Electronically Signed: Gulshan Ramirez MD at 17:09 EDT , Service support , ADDENDUM: 07/31/19 1720 IMPRESSION: 1. Pulmonary artery emboli in the medial aspect of the left lower lobe secondary arterial branches see images 87 through 99/232 series 2. 2. COPD/emphysema and scattered fibrotic changes 3. Mild groundglass edema both lungs. N.B. : The above information has been verbally conveyed by Gulshan Ramirez MD to Joselito Wellington MD, on 07/31/2019 17:13:32 (ET). Electronically Signed: Gulshan Ramirez MD at 17:09 EDT , Service support , Current Medications Enoxaparin Sodium (Lovenox) 90 mg SC DAILY MAHESH Last Admin: 07/31/19 17:36 Dose: 90 mg Documented by: Assessment/Plan All Active Problems (Last Updated 07/31/19 @ 17:[address] Harpreet Cornell MD) Acute left lung PE (Acute) This is a 79 years old female patient presented to the emergency room because of shortness of breath and chest pain and she was found to have acute left lower lobe pulmonary emboli and she is being admitted for treatment and also being admitted for atypical chest pain for evaluation. #1 acute left lower lung pulmonary emboli: Unprovoked, no significant risk factors. She did have a history of PE 2 years ago, was on Xarelto for 6 months. No symptoms or clinical signs of acute DVT. EKG reviewed. Vital signs are stable. Plan: Admit to PCU, cardiac monitoring, hypercoagulable work-up, start therapeutic Lovenox twice daily, gentle IV fluid hydration, Tylenol PRN, Zofran PRN, repeat CBC and BMP tomorrow morning, plan to switch to Xarelto or Eliquis probably tomorrow. #2 atypical chest pain: Initial EKG revealed no acute, changes. Troponin is negative. Although her symptoms has been exertional over the last several months, I doubt this is cardiac pain. She had a stress test back on October, that was normal without evidence of stress-induced myocardial ischemia. Plan: Cardiac monitoring, serial cardiac enzymes, repeat EKG tomorrow morning. At this time, no indication for further cardiac testing unless troponins start to go up or she developed new EKG changes. #3 type 2 diabetes mellitus: ADA diet, Accu-Cheks, insulin scale, continue Actos and Januvia as well as glimepiride. #4 hypertension: Blood pressure slightly treated, continue metoprolol and ramipril. #5 Alonzo's esophagus: Continue PPI. #6 hyperlipidemia: Continue statins. #7 history of PE: Plan as above. #8 stage III chronic kidney disease: Baseline creatinine is been around 1.2 mg/dL. Admission creatinine is 1.41, slightly above baseline. Plan for gentle IV fluids for hydration, repeat BMP tomorrow morning. #9 DVT prophylaxis: She will be on therapeutic Lovenox twice daily. This note was generated with [employer] dictation software. It may contain incorrect words, spelling, and punctuation that were not noted in checking the note before signing. Inpatient E&M: 45913 Init Hosp L3
[2019-07-31] MEDS: 0.9% Normal Saline 1,000 ML 75 ML IV (19:11)
[2019-07-31] MEDS: 0.9% Saline Lock 10 ML Syringe IV (19:14)
[2019-07-31] MEDS: Insulin Lispro 100 UNIT/ML INSULN.PEN SC (22:19)
[2019-07-31] MEDS: Ramipril 5 MG Capsule PO (22:25)
[2019-07-31] MEDS: Atorvastatin Calcium 20 MG Tablet 10 MG PO (22:27)
[2019-07-31] MEDS: Metoprolol Tartrate 25 MG Tablet PO (22:28)
[2019-08-01 00:46] LABS: Bedside Glucose 165 mg/dL (70-110)
[2019-08-01 03:00] VITALS: PULSE 63
[2019-08-01 04:10] VITALS: BP 118/49; PULSE 61; RESP 16; TEMP 36.7; O2SAT 98
--- NOTE | 2019-08-01 05:55 | EKG12_ITS ---
Test Reason : AM EKG Blood Pressure : / mmHG Vent. Rate : 058 BPM Atrial Rate : 058 BPM P-R Int : 122 ms QRS Dur : 090 ms QT Int : 452 ms P-R-T Axes : 032 -20 -07 degrees QTc Int : 443 ms Sinus bradycardia Otherwise normal ECG Confirmed by DINO CORRIGAN, VERONICA ([id number]), manager editorial CASSIA TRIANA ([id number]) on 08/05/2019 9:56:14 AM Referred By: EDWARDO Confirmed By:VERONICA SUN MD
[2019-08-01 06:02] LABS: Absolute Lymphocyte Count 2.18 X10^3/uL (0.83-4.51); Absolute Neutrophil Count 2.2 X10^3/uL (2.0-7.7); Basophil# 0.03 X10^3/uL; Basophil% 0.6 % (0-1); Eosinophil# 0.15 X10^3/uL; Eosinophils% 2.9 % (0-5); Hematocrit 41.5 % (37-47); Hemoglobin 13.1 g/dL (12.0-15.0); Lymphocyte # 2.18 X10^3/ul (4.0); Mean Corp Hgb Conc 31.6 g/dL (32-36); Mean Corpuscular Hgb 29.2 pg (27.0-32.0); Mean Corpuscular Volume 92.4 fL (81-99); Mean Platelet Vol. 11.1 fl (6.2-12.0); Monocyte# 0.57 X10^3/uL; NRBC Flagged by Analyzer 0 % (0-5); Neutrophil # 2.24 X10^3/uL (2.7-7.7); Neutrophil % 43.1 % (47-70); Platelet Count 143 K/mm3 (150-450); RBC Distribution Width CV 13.4 % (11.6-14.6); RBC Distribution Width SD 45.4 fl (35.1-43.9); Red Blood Count 4.49 M/mm3 (4.2-5.4); White Blood Count 5.2 K/mm3 (4.4-11.0)
[2019-08-01 06:25] LABS: Anion Gap 6 (5-15); BUN 14 mg/dL (7-18); BUN/Creat Ratio 13.2 RATIO (10-20); Chloride 111 mmol/L (98-107); Creatinine, Serum 1.06 mg/dL (0.55-1.02); EST Glomerular Filtration Rate 53 mL/min (>60); Est Glom Filt Rate - Afr Amer 64 mL/min (>60); Glucose 84 mg/dL (74-106); Potassium 3.5 mmol/L (3.5-5.1); Sodium Level 144 mmol/L (136-145)
[2019-08-01 06:32] VITALS: PULSE 60
[2019-08-01 06:40] LABS: Bedside Glucose 87 mg/dL (70-110)
[2019-08-01 07:35] VITALS: O2SAT 99
[2019-08-01] MEDS: Aspirin E.C. 81 MG Tablet PO (07:36)
[2019-08-01] MEDS: Glimepiride 2 MG Tablet PO (07:36)
[2019-08-01 08:58] VITALS: BP 142/65; PULSE 66; RESP 16; TEMP 36.7; O2SAT 95
[2019-08-01 09:00] VITALS: BP 142/65; PULSE 66
[2019-08-01] MEDS: Pioglitazone Hydrochloride 30 MG Tablet PO (09:00)
[2019-08-01] MEDS: Ramipril 5 MG Capsule PO (09:00)
[2019-08-01] MEDS: Metoprolol Tartrate 25 MG Tablet PO (09:00)
[2019-08-01] MEDS: Enoxaparin 100 MG/ML Syringe 90 MG SC (09:00)
[2019-08-01] MEDS: Mirabegron 25 MG TAB.ER.24H PO (09:01)
[2019-08-01] MEDS: LINAGLIPTIN 5 MG TABLET PO (09:01)
[2019-08-01] MEDS: Pantoprazole Sodium 20 MG Tablet PO (09:01)
--- NOTE | 2019-08-01 10:58 | PCM.DC ---
- Discharge Diagnoses Current Active Problems: Current Active and Chronic Problems (Last Updated 07/31/19 @ 17:[address] Harpreet Cornell MD) Acute left lung PE (Acute) History of pulmonary embolism (Chronic) You will use the following diet at home:: Calorie/Carbohydrate Controlled (specify 1200, 1400, etc) - 1800 penny / day, Cardiac Your food should be the consistency of: Regular Your liquids should be the consistency of: Regular/Thin Discharge Activity: Return to Normal Activity Additional Instructions: You will need to discuss with your doctor having an echocardiogram as an outpatient. Allergies/Adverse Reactions: Allergies liraglutide [From Victoza] Adverse Reaction (Verified 07/31/19 14:16) Other Medications to take at Discharge Ramipril [Altace] 5 mg PO BID 02/26/17 Sitagliptin Phosphate [Januvia] 100 mg PO DAILY 02/26/17 ascorbic acid (vitamin C) 500 mg capsule 500 mg PO DAILY cap 08/11/18 aspirin 81 mg tablet,delayed release 81 mg PO DAILY 08/11/18 glimepiride 2 mg tablet 2 mg PO QAM 08/11/18 lactobacillus combination no.8 3 billion cell capsule 3,000 mmu cells PO DAILY 08/11/18 Atorvastatin Calcium [Lipitor] 10 mg PO QHS 07/31/19 Ergocalciferol (Vitamin D2) [Vitamin D2] 50,000 unit PO QWEEK 07/31/19 Metoprolol Tartrate 25 mg PO BID 07/31/19 Mirabegron [Myrbetriq] 50 mg PO DAILY 07/31/19 Omeprazole 20 mg PO DAILY 07/31/19 Pioglitazone [Actos] 30 mg PO DAILY 07/31/19 Vitamin E 400 unit PO DAILY 07/31/19 Rivaroxaban [Xarelto] 15 mg PO BID #42 tab 08/01/19 Rivaroxaban [Xarelto] 20 mg PO DAILY #7 tab 08/01/19 The following prescriptions were given: Rivaroxaban [Xarelto] 15 mg PO BID #42 tab Transmission Status: Pending to [facility] Rivaroxaban [Xarelto] 20 mg PO DAILY #7 tab Transmission Status: Pending to [facility] Primary Care Physician: Loan Kapadia NP-C [Primary Care Provider] - Please follow up with your Primary Care Physician in: 1-2 weeks Test Results: Test results from this visit will be discussed in further detail at your follow-up appointment, if applicable. Proposed Discharge Date: 08/01/19
[2019-08-01] MEDS: Insulin Lispro 100 UNIT/ML INSULN.PEN SC (11:09)
[2019-08-01 11:20] LABS: Bedside Glucose 179 mg/dL (70-110)
--- NOTE | 2019-08-01 11:20 | CASEMGMT ---
RN CM Face to Face with patient for initial transition planning/care coordination assessment. RN CM introduced self and role at [facility]. Patient sitting in chair, alert and oriented. Patient willing to participate in assessment and is able to answer all questions appropriately. Care providers, pharmacy, and demographics verified. Patient wishes to discharge home, denies need for home health at this time. Patient states she has no further needs or concerns at this time. CM to follow for discharge planning needs that may arise. PCP: Kang Specialists: Alisia, pulmonology Preferred Pharmacy: [facility] Retail Insurance: [employer] Prescription Benefit: yes Living Will/HPOA: yes, daughter Daniela Maldonado LNOK: daughter Living Arrangements: Patient lives alone in a condo with no steps to enter. Patient states she is independent at home. Transportation: self/daughter DME/HHC: Patient has shower chair, raised toilet, cane, and cpap at home. Disposition Plan: Patient to discharge home with family support and follow-up plans in place. Ester KEENAN, RN, CM
--- NOTE | 2019-08-01 14:20 | DS.PCM_ITS ---
<Gigi Gomez - Last Filed: 08/01/19 14:20> Discharge Date and Diagnosis Date of Admission: 07/31/19 Date of Discharge: 08/01/19 - Primary Discharge Diagnosis Acute left lung PE, non provoked, 2nd episode. HTN T2DM Alonzo esophagus - Secondary Discharge Diagnosis Chronic Problems (Last Updated 07/31/19 @ 17:[address] Harpreet Cornell MD) History of pulmonary embolism (Chronic) Benign hypertension (Chronic) Type II diabetes mellitus (Chronic) HLD (hyperlipidemia) (Chronic) Overactive bladder (Chronic) Alonzo esophagus (Chronic) Hospital Course and Treatment Imaging Results: RAD/Chest 1 View (Portable) IMPRESSION: No demonstrated acute cardiopulmonary process. CT/CTA Chest W/WO Contrast IMPRESSION: 1. Pulmonary artery emboli in the medial aspect of the left lower lobe secondary arterial branches see images 87 through 99/232 series 2. 2. COPD/emphysema and scattered fibrotic changes 3. Mild groundglass edema both lungs. N.B. : The above information has been verbally conveyed by Gulshan Ramirez MD to Joselito Wellington MD, on 07/31/2019 17:13:32 (ET). Operations: None Procedures: None Summary of Care Provided: Hospital course: The patient is a 79 year old F with past medical history notable for prior non- provoked PE in the past at which point she completed Xarelto therapy, who presented to the emergency room with shortness of breath that have been progressively worsening over the past 3 months. She also had some left-sided chest pain. She came to the emergency room, had an elevated d-dimer, and subsequently a CTA of the chest which did reveal left lower pulmonary emboli. She was started on therapeutic Lovenox and admitted to the PCU. She had no events on telemetry overnight. She had no hypoxia at rest or with exertion. The patient improved faster than initially anticipated. She was placed on Xarelto for PE. She will need to have an echocardiogram as an outpatient. She was advised to follow-up with her PCP in 1 to 2 weeks. She does have a touch up carver, Dr. Crump, who she may follow-up with as needed. There is a hypercoagulable panel pending at this time. Troponin was negative x3. She was discharged home in stable condition. This patient was seen by Gigi Gomez PA-C under the supervision of Doctor Derrell. [] - Physical Exam Vitals/I&O's: Vital Signs Temp Pulse Resp BP Pulse Ox 98.0 F 66 16 142/65 H 95 08/01/19 08:58 08/01/19 09:00 08/01/19 08:58 08/01/19 09:00 08/01/19 08:58 Oxygen Delivery Method Room Air Weight: 193 lb 5.526 oz Body Mass Index (BMI) 34.2 Finger Stick Blood Glucose 110 Intake and Output for Last 24 Hours 07/30/19 07/31/19 08/01/19 23:59 23:59 23:59 Intake Total 360 / 360 640 / 640 Balance 360 / 360 640 / 640 General: Alert, Oriented x3, Cooperative HEENT: Atraumatic, PERRLA, EOMI, Normocephalic Neck: Supple, No JVD, Negative Carotid Bruits Lungs: Clear to auscultation, Normal air movement Cardiovascular: Regular rate, No murmurs Abdomen: Bowel Sounds Present, Soft, Non Tender Extremities: No edema, Capillary Refill Less than 3 Seconds Skin: No rashes, No breakdown Musculoskeletal: No Tenderness to Palpation of Joints or Extremities Neurological: Cranial nerves II-XII grossly intact Psych/Mental Status: Normal Affect, Appropriate, Alert and oriented to time, place, person, mood and affect Laboratory Results 07/31/19 14:33: WBC 6.6, RBC 4.94, Hgb 14.5, Hct 45.0, MCV 91.1, MCH 29.4, MCHC 32.2, RDW Std Deviation 45.1 H, RDW Coeff of Fredy 13.4, Plt Count 180, MPV 11.2, Immature Gran % (Auto) 0.500, Neut % (Auto) 63.6, Lymph % (Auto) 23.8, Shannon % (Auto) 9.5, Eos % (Auto) 2.3, Baso % (Auto) 0.3, Absolute Neuts (auto) 4.2, Absolute Lymphs (auto) 1.57, Nucleated RBC % 0 07/31/19 14:33: Sodium 140, Potassium 4.1, Chloride 106, Carbon Dioxide 29.0, Anion Gap 5, BUN 17, Creatinine 1.41 H, Estim Creat Clear Calc 27.94, Est GFR (MDRD) Af Amer 46 L, Est GFR (MDRD) Non-Af 38 L, BUN/Creatinine Ratio 12.1, Glucose 190 H, Calcium 9.2, Troponin I < 0.015 07/31/19 14:36: PT 12.6, INR 1.0, D-Dimer Quant (PE/DVT) 1.45 H* 07/31/19 19:16: Troponin I < 0.015 07/31/19 21:48: Troponin I < 0.015 07/31/19 22:16: POC Glucose 165 H 08/01/19 05:38: Protein C Antigen Pending, Prot C Funct Activity Pending, Functional Protein S Pending, Free Protein S Pending, Total Protein S Pending, Func Antithrombin III Pending, Factor V Leiden Mutat Pending, Anti-Cardiolipin IgG Ab Pending, Anti-Cardiolipin IgM Ab Pending 08/01/19 05:38: WBC 5.2, RBC 4.49, Hgb 13.1, Hct 41.5, MCV 92.4, MCH 29.2, MCHC 31.6 L, RDW Std Deviation 45.4 H, RDW Coeff of Fredy 13.4, Plt Count 143 L, MPV 11.1, Immature Gran % (Auto) 0.400, Neut % (Auto) 43.1 L, Lymph % (Auto) 42.0 H, Shannon % (Auto) 11.0 H, Eos % (Auto) 2.9, Baso % (Auto) 0.6, Absolute Neuts (auto) 2.2, Absolute Lymphs (auto) 2.18, Nucleated RBC % 0 08/01/19 05:38: Sodium 144, Potassium 3.5, Chloride 111 H, Carbon Dioxide 27.0, Anion Gap 6, BUN 14, Creatinine 1.06 H, Estim Creat Clear Calc 35.60, Est GFR (MDRD) Af Amer 64, Est GFR (MDRD) Non-Af 53 L, BUN/Creatinine Ratio 13.2, Glucose 84, Calcium 9.0 08/01/19 06:35: POC Glucose 87 08/01/19 11:02: POC Glucose 179 H Discharge Diet: Low fat/ Low Cholesterol, 1800 Calorie Control Diet, 2000 mg Sodium Diet Discharge Activity: Return to Normal Activity Home Medications: Medications to take at Discharge Ramipril [Altace] 5 mg PO BID 02/26/17 Sitagliptin Phosphate [Januvia] 100 mg PO DAILY 02/26/17 ascorbic acid (vitamin C) 500 mg capsule 500 mg PO DAILY cap 08/11/18 aspirin 81 mg tablet,delayed release 81 mg PO DAILY 08/11/18 glimepiride 2 mg tablet 2 mg PO QAM 08/11/18 lactobacillus combination no.8 3 billion cell capsule 3,000 mmu cells PO DAILY 08/11/18 Atorvastatin Calcium [Lipitor] 10 mg PO QHS 07/31/19 Ergocalciferol (Vitamin D2) [Vitamin D2] 50,000 unit PO QWEEK 07/31/19 Metoprolol Tartrate 25 mg PO BID 07/31/19 Mirabegron [Myrbetriq] 50 mg PO DAILY 07/31/19 Omeprazole 20 mg PO DAILY 07/31/19 Pioglitazone [Actos] 30 mg PO DAILY 07/31/19 Vitamin E 400 unit PO DAILY 07/31/19 Rivaroxaban [Xarelto] 15 mg PO BID #42 tab 08/01/19 Rivaroxaban [Xarelto] 20 mg PO DAILY #7 tab 08/01/19 Following Prescrptions Were Given to Patient: Rivaroxaban [Xarelto] 15 mg PO BID #42 tab Transmission Status: Received by [facility] Rivaroxaban [Xarelto] 20 mg PO DAILY #7 tab Transmission Status: Received by [facility] Primary Care Physician: Loan Kapadia NP-C [Primary Care Provider] - Please follow up with your Primary Care Physician in: 1-2 weeks Disposition: Home Minutes spent on discharge:: 35 Patient Condition:: Stable Medical Necessity - Tobacco Use Smoking Status: Never smoker Meaningful Use Info Meaningful Use Diagnoses (Choose all that apply): VTE - VTE Anticoag overlap given w/in hospital stay or rx'd at il?: No Reason overlap not ordered, prescribed, or given for 5 days: Procedure Not Indicated <[place] - Last Filed: 08/01/19 15:11> Discharge Date and Diagnosis - Secondary Discharge Diagnosis Chronic Problems (Last Updated 07/31/19 @ 17:[address] Harpreet Cornell MD) History of pulmonary embolism (Chronic) Benign hypertension (Chronic) Type II diabetes mellitus (Chronic) HLD (hyperlipidemia) (Chronic) Overactive bladder (Chronic) Alonzo esophagus (Chronic) Hospital Course and Treatment Summary of Care Provided: This patient was seen in conjunction with TREMAYNE Draper. I have independently interviewed and examined the patient and reviewed pertinent historical, laboratory, and other data. Please refer to TREMAYNE Draper note for his patient's presentation, findings, and recommendations. I have reviewed and his note and concur with his documentation 79-year-old with previous history of unprovoked PE, was on Xarelto who comes in with progressive shortness of breath and chest discomfort and was diagnosed with left lower lobe lobe pulmonary emboli. She continued to be without oxygen. Patient appears to have improved faster than anticipated. She was ambulated and did not qualify for home oxygen. Hypercoagulable panel was taken is pending at time of discharge. Patient was discharged on Xarelto follow-up with her primary touch up carver. Physical Exam: Gen: Comfortable, not pale, not jaundiced CVS:HS I +II, regular, no murmurs RESP: Diminished at lung bases GI: BS present and normal, soft, nontender, no palpable organs EXT:No edema - Physical Exam Vitals/I&O's: Vital Signs Temp Pulse Resp BP Pulse Ox 98.0 F 66 16 142/65 H 95 08/01/19 08:58 08/01/19 09:00 08/01/19 08:58 08/01/19 09:00 08/01/19 08:58 Oxygen Delivery Method Room Air Weight: 87.7 kg Body Mass Index (BMI) 34.2 Finger Stick Blood Glucose 110 Intake and Output for Last 24 Hours 07/30/19 07/31/19 08/01/19 23:59 23:59 23:59 Intake Total 360 / 360 640 / 640 Balance 360 / 360 640 / 640 Laboratory Results 07/31/19 14:36: PT 12.6, INR 1.0, D-Dimer Quant (PE/DVT) 1.45 H* 07/31/19 19:16: Troponin I < 0.015 07/31/19 21:48: Troponin I < 0.015 07/31/19 22:16: POC Glucose 165 H 08/01/19 05:38: Protein C Antigen Pending, Prot C Funct Activity Pending, Functional Protein S Pending, Free Protein S Pending, Total Protein S Pending, Func Antithrombin III Pending, Factor V Leiden Mutat Pending, Anti-Cardiolipin IgG Ab Pending, Anti-Cardiolipin IgM Ab Pending 08/01/19 05:38: WBC 5.2, RBC 4.49, Hgb 13.1, Hct 41.5, MCV 92.4, MCH 29.2, MCHC 31.6 L, RDW Std Deviation 45.4 H, RDW Coeff of Fredy 13.4, Plt Count 143 L, MPV 11.1, Immature Gran % (Auto) 0.400, Neut % (Auto) 43.1 L, Lymph % (Auto) 42.0 H, Shannon % (Auto) 11.0 H, Eos % (Auto) 2.9, Baso % (Auto) 0.6, Absolute Neuts (auto) 2.2, Absolute Lymphs (auto) 2.18, Nucleated RBC % 0 08/01/19 05:38: Sodium 144, Potassium 3.5, Chloride 111 H, Carbon Dioxide 27.0, Anion Gap 6, BUN 14, Creatinine 1.06 H, Estim Creat Clear Calc 35.60, Est GFR (MDRD) Af Amer 64, Est GFR (MDRD) Non-Af 53 L, BUN/Creatinine Ratio 13.2, Glucose 84, Calcium 9.0 08/01/19 06:35: POC Glucose 87 08/01/19 11:02: POC Glucose 179 H Inpatient E&M: [id number] Disch Hosp
[2019-08-06 20:07] LABS: Protein C Antigen 86 % (60-150); Protein C, Functional 105 % (73-180)
[2019-08-07 01:20] LABS: Anti-Cardiolipin Ab, IgG, Qn < 9 GPL U/mL (0-14); Anti-Cardiolipin Ab, IgM, Qn 12 MPL U/mL (0-12); Antithrombin 3 Function 97 % (75-135); Protein S, Free 75 % (57-157); Protein S, Funtional 91 % (63-140); Protein S, Total 98 % (60-150)
== END 2019-08-01 12:18 | disposition home or self-care (01) | DRG 176 ==
LOC: ED 15:02 → PCU 20:06
PROVIDERS: Admitting Provider Hospitalist; Emergency Provider Emergency Medicine; PCP Nurse Practitioner; Visit Provider Internal Medicine
DX: I26.99 Other pulmonary embolism without acute cor pulmonale (principal); R07.89 Other chest pain; I12.9 Hypertensive chronic kidney disease with stage 1 through stage 4 chronic kidney disease, or unspecified chronic kidney disease; E11.22 Type 2 diabetes mellitus with diabetic chronic kidney disease; N18.3 Chronic kidney disease, stage 3 (moderate); K22.70 Barrett's esophagus without dysplasia; K21.9 Gastro-esophageal reflux disease without esophagitis; E78.5 Hyperlipidemia, unspecified; N32.81 Overactive bladder; Z86.711 Personal history of pulmonary embolism; Z79.82 Long term (current) use of aspirin; Z79.84 Long term (current) use of oral hypoglycemic drugs; Z79.899 Other long term (current) drug therapy
CPT/HCPCS: 36415; 71045; 71275; 80048; 81241; 82962; 84484; 85025; 85300; 85302; 85303; 85305; 85306; 85379; 85610; 86147; 93005; 99251; 99285; J7030; Q9967; A4216; G0463

== ENCOUNTER → 2019-08-14 09:26 | Outpatient (CLI) | payer MEDICARE, OTHER, SELFPAY ==
[2019-07-31 18:23] VITALS: BMI 34.2
--- NOTE | 2019-08-14 09:28 | RAD_ITS ---
STUDY: AIR-CONTRAST UPPER GI SERIES. REASON FOR EXAM: Female, 79 years old. HOOVER''S. PT STATES HAS CLEARED UP WITH MEDS -- STATES HAS BLOOD CLOTS IN LUNGS, BUT CAN''T FIGURE OUT WHY -- GASSY, DIARRHEA FLUOROSCOPY TIME (if supplied): ( 44 seconds ) minutes/seconds TECHNIQUE: The patient ingested barium. Multiple images of the esophagus, stomach and duodenum were obtained. COMPARISON: None. FINDINGS: The esophagus is unremarkable. There is no evidence of obstruction. No mass lesion is seen. No evidence of ulceration. There is no evidence of gastroesophageal reflux. The stomach is unremarkable. No evidence of ulceration. No mass lesion is seen. There is evidence of a 1.1 cm x 0.8 cm diverticulum in the second portion of the duodenum. RAD/Upper GI Dual Contrast IMPRESSION: 1.1 cm x 0.8 cm diverticulum in the second portion of the duodenum. No other abnormality is seen. Electronically Signed: Endy Forbes, at 10:41 EDT , Service support ,
== END ==
PROVIDERS: PCP Nurse Practitioner; Referring Provider Nurse Practitioner; Visit Provider Nurse Practitioner
DX: K22.70 Barrett's esophagus without dysplasia (principal)
CPT/HCPCS: 74246

== ENCOUNTER → 2019-08-21 08:46 | Outpatient (CLI) | payer MEDICARE, OTHER, SELFPAY ==
[2019-07-31 18:23] VITALS: BMI 34.2
--- NOTE | 2019-08-21 08:49 | ECHOD_ITS ---
Reason For Study: Multiple PE's Procedure This was a 2D Doppler, Color Flow transthoracic echocardiogram. Exam performed in department. Left Ventricle Normal LV size. The estimated ejection fraction is 65 %. Left ventricular systolic function is normal. Stage 2 diastolic dysfunction. No regional wall motion abnormalities noted. Right Ventricle Normal RV size. Normal systolic function. Atria Normal left atrium. Normal right atrium. Mitral Valve Normal mitral valve. Mild (1+) eccentric mitral valve insufficiency. Tricuspid Valve Normal tricuspid valve. Mild (1+) tricuspid valve insufficiency. Pulmonary artery systolic pressure is 33 mmHg. Aortic Valve Normal aortic valve. Pulmonic Valve Normal pulmonic valve. Great Vessels Normal aortic root. The pulmonary artery is normal size. Normal inferior vena cava. Pericardium/Pleural No pericardial effusion. MMode/2D Measurements & Calculations LVIDd: 4.4 cm IVSd: 0.98 cm Ao root diam: 3.2 cm LVIDs: 3.0 cm LVPWd: 1.1 cm RVDd: 3.0 cm FS: 31.6 % LAV(MOD-bp): 46.4 ml EDV(MOD-sp4): 65.4 ml EDV(MOD-sp2): 57.1 ml LAV(MOD-bp) Indexed: 24.5 ml/m2 ESV(MOD-sp4): 23.3 ml EF(MOD-sp2): 66.9 % LAV(MOD-sp2): 36.3 ml EF(MOD-sp4): 64.3 % LAV(MOD-sp4): 51.2 ml SV(MOD-sp4): 42.1 ml SV(MOD-sp2): 38.2 ml LA A4 area: 18.2 cm2 LA dimension(2D): 3.7 cm RA A4 area: 11.2 cm2 Doppler Measurements & Calculations MV E max duke: 92.0 cm/sec Lat Peak E' Duke: 9.8 cm/sec Med Peak E' Duke: 7.4 cm/sec MV A max duke: 89.4 cm/sec E/E' lat: 9.4 E/E' med: 12.5 MV E/A: 1.0 Ao V2 max: 124.8 cm/sec LV V1 max: 95.1 cm/sec PA V2 max: 108.6 cm/sec Ao max P.2 mmHg LV V1 max P.6 mmHg TR max duke: 269.5 cm/sec TR max P.0 mmHg Interpretation Summary Normal LV size. The estimated ejection fraction is 65 %. Left ventricular systolic function is normal. Stage 2 diastolic dysfunction. Pulmonary artery systolic pressure is 33 mmHg. Ordering Physician: Loan Kapadia Referring Physician: Loan Kapadia Performed By: Fern Dacosta RDCS
== END ==
PROVIDERS: PCP Nurse Practitioner; Referring Provider Nurse Practitioner; Visit Provider Nurse Practitioner
DX: I26.99 Other pulmonary embolism without acute cor pulmonale (principal)
CPT/HCPCS: 93306

== ENCOUNTER 2019-08-28 11:26 | Emergency (ER) | payer MEDICARE, OTHER, SELFPAY ==
[2019-07-31 18:23] VITALS: BMI 34.2
[2019-08-28 11:30] VITALS: BP 150/64; PULSE 64; RESP 22; TEMP 36.6; O2SAT 97; BMI 34.0
--- NOTE | 2019-08-28 11:45 | RAD_ITS ---
STUDY: X-RAY CHEST REASON FOR EXAM: Female, 79 years old. CP WITH SOB STARTED THIS AM WITH NAUSEA TECHNIQUE: Single AP portable view of the chest. COMPARISON: July 31, 2019. FINDINGS: Mild cardiomegaly. Mild congestion. Aorta unremarkable. No focal patchy airspace opacities. No pleural effusions. Upper abdomen unremarkable. Osseous structures intact. No pneumothorax. RAD/Chest 1 View (Portable) IMPRESSION: Mild cardiomegaly with mild congestion Electronically Signed: Artem Adames DO at 12:14 EDT Tel , Service support ,
--- NOTE | 2019-08-28 11:46 | EKG12_ITS ---
Test Reason : CP Blood Pressure : / mmHG Vent. Rate : 061 BPM Atrial Rate : 061 BPM P-R Int : 132 ms QRS Dur : 090 ms QT Int : 422 ms P-R-T Axes : 028 -23 -07 degrees QTc Int : 424 ms Normal sinus rhythm Nonspecific ST abnormality Abnormal ECG Confirmed by MARILYNN CORRIGAN, MARGAUX ([id number]), photographic editor CASSIA TRIANA ([id number]) on 09/01/2019 3:14:16 PM Referred By: BRETT Confirmed By:ANANT SUBRAMANIAN MD
--- NOTE | 2019-08-28 11:46 | VDLE_ITS ---
Reason For Study: Pulmonary embolism RIGHT LEFT GSV is normal. GSV is normal. CFV is compressible, spontaneous, phasic, CFV is compressible, spontaneous, phasic, competent and demonstrates normal competent, and demonstrates normal augmentation. augmentation. FV is compressible, spontaneous, phasic, FV is compressible, spontaneous, phasic, competent and demonstrates normal competent and demonstrates normal augmentation. augmentation. POP V is compressible, spontaneous, phasic, POP V is compressible, spontaneous, phasic, competent and demonstrates normal competent and demonstrates normal augmentation. augmentation. T/P Trunk is compressible. T/P Trunk is compressible. PTV is compressible. PTV is compressible. RT PerV is compressible. LT PerV is compressible. Procedure Exam performed portable in ED. A preliminary report was called and/or faxed to ED RN. Interpretation Summary No evidence for acute deep venous thrombosis bilateral lower extremities with patent and compressible bilateral great saphenous veins. Ordering Physician: Bubba Valerio Referring Physician: Loan Kapadia Performed By: Ester Roberts RVT
--- NOTE | 2019-08-28 11:51 | ED.DCSUM_ITS ---
- ER Visit Summary Date of Service: 08/28/19 Chief Complaint: Chest pain History of Present Illness: The patient is a [address] Crump and Loan Kapadia. She reports that 10:00 this morning she was sitting in her chair when she had abrupt onset of a dull, tightness on the left of her chest that lasted approximately 1 hour. It was 7-10 at worst and she is pain-free currently. States that it was worsened by breathing. She did not walk around during this. Was relieved by nothing. She reports she was nauseated with this. No vomiting. No diaphoresis or shortness of breath. She states this is similar to when she had a PE in the past. Patient reports that she was admitted to hospital last month and diagnosed with PEs on the left. This is her second episode of this. It was unprovoked. She is on Xarelto and is taken her last dose this morning. Physical Examination: Vitals: Stable. Afebrile. General: Well-nourished and well-developed. Head: Normocephalic atraumatic. Neck: Supple, no lymphadenopathy. No JVD. Nontender. Cardiovascular: Regular rate and rhythm. No murmurs. Respiratory: No respiratory distress. Clear to auscultation bilaterally. Abdominal: Soft, nontender, nondistended, normal bowel sounds. No guarding, rebound, or peritoneal signs. Back: Nontender. Extremities: Mild calf tenderness bilaterally r, no edema. Skin: Normal color, no rash. Neurologic: Alert and oriented ?3. Cranial nerves II through XII are intact. Normal strength and sensation. Psych: Normal affect. Test Results: EKG is sinus at [address] changes. Is unchanged from last month. CBC is normal. Chem-7 shows a creatinine 1.37 and glucose 231. Troponin is negative. Repeat troponin is negative. Repeat EKG is negative. Bilateral lower extremity Dopplers are negative. Chest x-ray shows cardiomegaly. Emergency Department Course and Treatment: Patient is rested comfortably while here. She feels comfortable going home. Treatment Plan: Patient will be discharged instructions to follow-up with her primary care physician within 3 to 5 days for another exam. Return to the emergency department for any worsening symptoms. Disposition: To home in improved and stable condition. Impression: 1. Atypical chest pain. 2. PE diagnosed July 31, 2019. 3. THO score of 2. This note was generated with [employer] dictation software. It may contain incorrect words, spelling, and punctuation that were not noted in review of the chart prior to signing ED Disposition - Plan for ED Patient: Instructions: ED Chest Pain Atypical Unkn Cause Referrals: Loan Kapadia, PROTOTYPE ENGINEER MANAGER-C [Primary Care Provider] - 3-5 Days
[2019-08-28 11:54] LABS: Absolute Lymphocyte Count 1.44 X10^3/uL (0.83-4.51); Absolute Neutrophil Count 4.2 X10^3/uL (2.0-7.7); Basophil# 0.04 X10^3/uL; Basophil% 0.6 % (0-1); Eosinophil# 0.15 X10^3/uL; Eosinophils% 2.4 % (0-5); Hematocrit 46.4 % (37-47); Hemoglobin 14.7 g/dL (12.0-15.0); Lymphocyte # 1.44 X10^3/ul (4.0); Lymphocyte % 22.6 % (19-41); Mean Corp Hgb Conc 31.7 g/dL (32-36); Mean Corpuscular Hgb 29.6 pg (27.0-32.0); Mean Corpuscular Volume 93.5 fL (81-99); Mean Platelet Vol. 11.2 fl (6.2-12.0); Monocyte# 0.52 X10^3/uL; Monocyte% 8.2 % (0-10); NRBC Flagged by Analyzer 0 % (0-5); Neutrophil % 65.7 % (47-70); Platelet Count 154 K/mm3 (150-450); RBC Distribution Width CV 13.7 % (11.6-14.6); RBC Distribution Width SD 47.2 fl (35.1-43.9); Red Blood Count 4.96 M/mm3 (4.2-5.4); White Blood Count 6.4 K/mm3 (4.4-11.0)
[2019-08-28 12:11] LABS: Anion Gap 4 (5-15); BUN 16 mg/dL (7-18); BUN/Creat Ratio 11.7 RATIO (10-20); Calcium,Total 9.3 mg/dL (8.5-10.1); Chloride 106 mmol/L (98-107); Creatinine, Serum 1.37 mg/dL (0.55-1.02); EST Glomerular Filtration Rate 40 mL/min (>60); Est Glom Filt Rate - Afr Amer 48 mL/min (>60); Estimated Creatinine Clearance 28.75 ml/min; Glucose 231 mg/dL (74-106); Potassium 4.1 mmol/L (3.5-5.1); Sodium Level 140 mmol/L (136-145)
[2019-08-28 12:18] VITALS: BP 155/74; PULSE 65; RESP 16; O2SAT 97
[2019-08-28] MEDS: Aspirin 81 MG TAB.CHEW 324 MG PO (12:25)
[2019-08-28 12:34] VITALS: BP 147/56; PULSE 68; RESP 18; TEMP 36.3; O2SAT 98
--- NOTE | 2019-08-28 12:42 | EKG12_ITS ---
Test Reason : CP Blood Pressure : / mmHG Vent. Rate : 063 BPM Atrial Rate : 063 BPM P-R Int : 120 ms QRS Dur : 094 ms QT Int : 412 ms P-R-T Axes : 027 -31 -77 degrees QTc Int : 421 ms Normal sinus rhythm Left axis deviation ST & T wave abnormality, consider lateral ischemia Abnormal ECG Confirmed by MARILYNN CORRIGAN, MARGAUX ([id number]), technical editor CASSIA TRIANA ([id number]) on 09/01/2019 3:14:29 PM Referred By: CHASE Confirmed By:ANANT SUBRAMANIAN MD
[2019-08-28 13:00] VITALS: BP 130/46; PULSE 60; RESP 17; O2SAT 97
[2019-08-28 15:26] VITALS: BP 143/76; PULSE 60; RESP 18; TEMP 36.6; O2SAT 99
== END 2019-08-28 15:27 | disposition home or self-care (01) ==
PROVIDERS: Emergency Provider Emergency Medicine; PCP Nurse Practitioner
DX: R07.89 Other chest pain (principal); I10 Essential (primary) hypertension; E11.9 Type 2 diabetes mellitus without complications; Z86.711 Personal history of pulmonary embolism; Z79.01 Long term (current) use of anticoagulants; Z79.82 Long term (current) use of aspirin; Z79.84 Long term (current) use of oral hypoglycemic drugs; Z79.899 Other long term (current) drug therapy
CPT/HCPCS: 71045; 80048; 84484; 85025; 93005; 93970; 99285; A4216

== ENCOUNTER → 2019-09-14 09:05 | Outpatient (CLI) | payer MEDICARE, OTHER, SELFPAY ==
[2019-09-10 14:04] VITALS: BMI 33.5
== END ==
PROVIDERS: PCP Nurse Practitioner; Referring Provider Specialist; Visit Provider Specialist
DX: R00.2 Palpitations (principal)
CPT/HCPCS: 93225; 93226

== ENCOUNTER 2019-09-24 08:53 | Day surgery (SDC) | payer MEDICARE, OTHER, SELFPAY ==
[2019-09-10 14:04] VITALS: BMI 33.5
[2019-09-23 10:19] VITALS: BMI 33.5
--- NOTE | 2019-09-28 11:12 | CL.D_ITS ---
Patient Name: JIMENEZ PANDYA Study Date: 09/24/2019 Performing: Carlie Oro MD Ht: 64 inches 163 cm : 1940 Wt: 194.3 lbs 88 kg Age: 79 Gender: female BSA: 1.93 PROCEDURE(S) PERFORMED [id number]/COR/LV CLINICAL PROFILE AND INDICATIONS Indications: Other Heart Failure: None Stress/Imaging Stress/Image Study Performed: No CAD Presentations: Unstable angina. CONCLUSIONS Multivessel CAD, preserved EF, No significant or MR. RECOMMENDATIONS Surgery consult for coronary revascularization DESCRIPTION OF PROCEDURE The patient arrived to the procedure lab. The risks and benefits of the procedure as well as a full d escription of our services here and current unavailability of surgical backup were fully explained to the patient and/or their significant other prior to the catheterization. The Timeout was completed, verifying the correct patient and procedure. The patient's procedural site was prepped and draped in the usual fashion. Local anesthetic was given subcutaneously to right radial region with Lidocaine 2% . Using a modified Seldinger technique, arterial access was obtained via the right radial artery, a 6 Fr sheath was inserted. Left Ventriculography was performed in [place] projection using a 5 Fr JR4.. LV to AO pullback pressures were then recorded. Right Coronary Artery selective angiography was then per formed in multiple views using a 5 Fr. JR 4 catheter. Left Coronary Artery selective angiography was performed in multiple views using a 5 Fr. 4.0 Entriken catheter.The arterial sheath was pulled and a TR Band was applied for hemostasis CORONARY ANGIOGRAPHY DOMINANCE: Right Dominant LEFT HEART ASSESSMENT Left Ventricular Ejection Fraction: by LV Gram 55 % Normal LV wall motion LEFT MAIN: 90 % distal stenosis LEFT ANTERIOR DESCENDING ARTERY: MID LAD: 95 % Stenosis CIRCUMFLEX ARTERY: OSTIAL CIRC: 90 % Stenosis OM 1: Proximal - 30 % Stenosis RIGHT CORONARY ARTERY: OSTIAL RCA: 50 % Stenosis MID RCA: 99 % Stenosis. VALVE FINDINGS: No Aortic Valve Stenosis No Mitral Insufficency COMPLICATIONS No Complications PROCEDURE MEDICATIONS Versed 1 mg IV Fentanyl 50 mcg IV Oxygen: 2 L/min via nasal cannula Heparin given IA 09/24/2019 10:41:37 Verapamil 2.5mg, Ntg 100mcgs, 3000 units of Heparin given IA 09/24/2019 10:41:37 SUMMARY OF HEMODYNAMIC DATA Time AIR REST AO 123/55 (82) SA 10:43:08 LV 140/-6, 13 10:46:52 LV 140/-5, 16 10:46:58 LV 136/-5, 15 10:47:36 LVp 139/-6, 16 10:47:42 AOp 131/53 (84) 10:47:48 Signed By Carlie Oro MD On 09/28/2019 11:12:14 Carlie Oro MD
== END 2019-09-24 14:00 | disposition short-term general hospital (02) ==
PROVIDERS: PCP Nurse Practitioner; Referring Provider Specialist; Visit Provider Specialist
DX: I25.110 Atherosclerotic heart disease of native coronary artery with unstable angina pectoris (principal); R00.2 Palpitations; R06.02 Shortness of breath; I10 Essential (primary) hypertension; E11.51 Type 2 diabetes mellitus with diabetic peripheral angiopathy without gangrene; E78.5 Hyperlipidemia, unspecified; N32.81 Overactive bladder; K22.70 Barrett's esophagus without dysplasia; M81.0 Age-related osteoporosis without current pathological fracture; G47.33 Obstructive sleep apnea (adult) (pediatric); Z86.711 Personal history of pulmonary embolism; Z79.82 Long term (current) use of aspirin; Z79.84 Long term (current) use of oral hypoglycemic drugs; Z79.899 Other long term (current) drug therapy
CPT/HCPCS: 93458; 99152; 99153; J7040; C1769; C1894; Q9967

== ENCOUNTER → 2019-10-22 11:13 | Outpatient (CLI) | payer MEDICARE, OTHER, SELFPAY ==
[2019-09-23 10:19] VITALS: BMI 33.5
--- NOTE | 2019-10-22 11:25 | RAD_ITS ---
STUDY: X-RAY CHEST REASON FOR EXAM: Female, 79 years old. PAINFUL COUGH SINCE HEART SURGERY SEPTEMBER 25 TECHNIQUE: 4 views, PA, lateral and bilateral decubitus. COMPARISON: Prior chest radiograph of August 28, 2019 prior to midline sternotomy. FINDINGS: The right lung is fully expanded and has returned to a baseline appearance with linear scarring and a calcified granuloma of the right mid lung. On the left there are persistent areas of linear opacity, a somewhat ill-defined left lateral diaphragm and a blunted costophrenic angle. The left upper lung zone has returned to baseline. Bilateral decubitus radiographs demonstrate no layering pleural effusion. Normal size heart. Status post prior midline sternotomy. Normal visualized pulmonary arteries. Normal visualized aortic arch and descending thoracic aorta. Normal visualized thoracic spine. Normal visualized ribs, clavicles, and shoulders. There is no demonstrated abnormality of the visualized soft tissue structures of the upper abdomen. RAD/Chest Min 4 Views IMPRESSION: Persistent linear type bands of atelectasis and atelectatic changes in the left costophrenic angle persist. The right lung has returned to a baseline appearance prior to midline sternotomy. Decubitus radiographs are negative for a layering pleural effusion. Stable cardiac size status post prior midline sternotomy Electronically Signed: Bhavya Tate MD at 17:06 EDT , Service support ,
== END ==
PROVIDERS: PCP Nurse Practitioner; Referring Provider Internal Medicine Pulmonary Disease; Visit Provider Internal Medicine Pulmonary Disease
DX: R05 Cough (principal)
CPT/HCPCS: 71048

== ENCOUNTER → 2020-02-11 09:34 | Outpatient (CLI) | payer MEDICARE, OTHER, SELFPAY ==
[2019-12-16 13:51] VITALS: BMI 32.4
[2020-02-11 10:12] LABS: Erythrocyte Sedimentation Rate 23 mm/hr (0-30)
[2020-02-12 17:14] LABS: Angiotensin Convert Enzyme 52 U/L (14-82)
== END ==
PROVIDERS: PCP Nurse Practitioner; Referring Provider Internal Medicine Pulmonary Disease; Visit Provider Internal Medicine Pulmonary Disease
DX: R05 Cough (principal); I26.99 Other pulmonary embolism without acute cor pulmonale; I10 Essential (primary) hypertension; G47.33 Obstructive sleep apnea (adult) (pediatric)
CPT/HCPCS: 36415; 82164; 85652

== ENCOUNTER → 2020-06-09 08:09 | Outpatient (CLI) | payer MEDICARE, OTHER, SELFPAY ==
[2020-05-11 10:51] VITALS: BMI 33.1
[2020-06-09 08:59] LABS: ALB/GLOB Ratio 0.9 RATIO (0.9-2.4); AST(SGOT) 23 U/L (15-37); Alanine Aminotransfer ALT/SGPT 31 U/L (13-56); Albumin, Serum 3.5 g/dL (3.2-5.0); Alkaline Phosphatase 137 U/L (45-117); Anion Gap 3 (5-15); BUN 16 mg/dL (7-18); BUN/Creat Ratio 13.2 RATIO (10-20); Calcium,Total 9.2 mg/dL (8.5-10.1); Chloride 106 mmol/L (98-107); Creatinine, Serum 1.21 mg/dL (0.55-1.02); EST Glomerular Filtration Rate 46 mL/min (>60); Est Glom Filt Rate - Afr Amer 55 mL/min (>60); Globulin 3.8 g/dL (2.2-4.2); Glucose 97 mg/dL (74-106); Potassium 4.2 mmol/L (3.5-5.1); Protein, Total 7.3 g/dL (6.4-8.2); Sodium Level 140 mmol/L (136-145)
== END ==
PROVIDERS: PCP Nurse Practitioner; Referring Provider Nurse Practitioner; Visit Provider Nurse Practitioner
DX: E11.65 Type 2 diabetes mellitus with hyperglycemia (principal)
CPT/HCPCS: 36415; 80053

== ENCOUNTER → 2020-08-02 09:35 | Outpatient (CLI) | payer MEDICARE, OTHER, SELFPAY ==
[2020-06-17 09:21] VITALS: BMI 33.2
--- NOTE | 2020-08-02 09:37 | BI_ITS ---
MAMMOGRAPHY - BILATERAL SCREENING REASON FOR EXAM: Female, 80 years old. Routine annual screening examination. PERTINENT HISTORY: Non-contributory. TECHNIQUE: Digital bilateral breast judie (3D mammographic acquisition) in the CC and MLO projections. 2-D mediolateral oblique (MLO) and craniocaudad (CC) views of both breasts were obtained. CAD: Full Field Digital Mammography with Computer Added Detection was performed. COMPARISON: Comparison is made with prior study dated 07/27/2019 and 06/05/2018. FINDINGS: Breast Composition: There are scattered areas of fibroglandular density. There are no dominant masses or suspicious calcifications. Stable benign-appearing bilateral axillary lymph nodes. No other significant abnormalities are identified. There has been no significant change since the prior study. BI/SCRN MAMM (CAD)W/JUDIE BILAT IMPRESSION: Stable bilateral screening mammogram. Yearly follow-up mammogram recommended. (A) ASSESSMENT CATEGORY: BIRADS Category 2: Benign. A letter regarding these results will be sent to the patient by the facility within 30 days. Approximately 10% of breast cancers are not detected by mammography. A normal mammogram should not delay biopsy of a clinically suspicious abnormality. [id number] Electronically Signed: Endy Forbes MD at 12:36 EDT , Service support ,
--- NOTE | 2020-08-02 09:41 | BD_ITS ---
STUDY: DUAL ENERGY X-RAY ABSORPTIOMETRY / DXA REASON FOR EXAM: Female, 80 years old. [id number]. The patient is postmenopausal. Loss of height. TECHNIQUE: Bone Mineral Density (BMD) measurements of lumbar spine and bilateral hips were obtained. COMPARISON: Comparison is made with prior study dated 06/05/2018. FINDINGS: Lumbar Spine (L1-L4): g/cm2 (1.204) / T-score (0.3) / Z-score (2.1) Findings are suggestive of normal bone density with a low fracture risk. Left Femur Total: g/cm2 (0.934) / T-score (-0.6) / Z-score (1.4) Left Femoral Neck: g/cm2 (0.812) / T-score (-1.6) / Z-score (0.5) Right Femur Total: g/cm2 (0.897) / T-score (-0.9) / Z-score (1.1) Right Femoral Neck: g/cm2 (0.821) / T-score (-1.6) / Z-score (0.6) The T-Scores on the most recent prior examination were: Lumbar Spine (L1-L4): There has been improvement of bone density since the previous examination. Left Femur Total: which represents a worsening of 5.2%. Right Femur Total: which represents a worsening of 5.3%. BD/Dexa Bone Density Study IMPRESSION: The patient is considered osteopenic as outlined below according to World Parker Organization (WHO) criteria with a moderate fracture risk. There has been worsening of bone density since the previous examination. Reference Information: The T-score is the number of standard deviations above or below the standard which is normal for young adults at their peak bone mineral density. The World Health Organization (WHO) interprets the T-scores as follows: Above -1 Normal bone density Between -1 and -2.5 Osteopenia Equal to / or below -2.5 Osteoporosis As a practical clinical guideline, osteopenia may be graded as follows: Mild -1 through -1.5 Moderate -1.6 through -2.0 Severe -2.1 through -2.4 The Z-score is the number of standard deviations above or below age-matched controls. A Z-score of less than -1.5 would be considered abnormal. References: 1. NIH Osteoporosis and Related Bone Diseases www osteo.org 2. International Society for Clinical Densitometry www iscd.org 3. National Osteoporosis Foundation www nof.org Electronically Signed: Endy Forbes MD at 13:57 EDT , Service support ,
== END ==
PROVIDERS: PCP Nurse Practitioner; Referring Provider Nurse Practitioner; Visit Provider Nurse Practitioner
DX: Z78.0 Asymptomatic menopausal state (principal); Z12.31 Encounter for screening mammogram for malignant neoplasm of breast
CPT/HCPCS: 77063; 77067; 77080

== ENCOUNTER → 2020-08-09 14:25 | Outpatient (CLI) | payer MEDICARE, OTHER, SELFPAY ==
[2020-06-17 09:21] VITALS: BMI 33.2
--- NOTE | 2020-08-09 14:28 | VDLE_ITS ---
Reason For Study: Swelling Procedure LEFT This is a venous duplex using B-mode, color GSV is normal. flow and spectral Doppler. CFV is compressible, spontaneous, phasic, Exam performed in department. competent, and demonstrates normal A preliminary report was called and/or faxed augmentation. to [facility]. FV is compressible, spontaneous, phasic, competent and demonstrates normal augmentation. POP V is compressible, spontaneous, phasic, competent and demonstrates normal augmentation. T/P Trunk is compressible. PTV is compressible. LT PerV is compressible. VL/Venous Duplex US, Unilateral Interpretation Summary There is no evidence of left lower extremity deep vein thrombosis. Left great s aphenous vein appears patent and compressible segmentally. Ordering Physician: Loan Kapadia Referring Physician: Loan Kapadia Performed By: Ester Roberts RVT
== END ==
PROVIDERS: PCP Nurse Practitioner; Visit Provider Nurse Practitioner
DX: M79.89 Other specified soft tissue disorders (principal)
CPT/HCPCS: 93971

== ENCOUNTER → 2020-09-20 10:03 | Outpatient (CLI) | payer MEDICARE, OTHER, SELFPAY ==
[2020-06-17 09:21] VITALS: BMI 33.2
--- NOTE | 2020-09-20 10:09 | US_ITS ---
STUDY: ABDOMINAL ULTRASOUND - RIGHT UPPER QUADRANT REASON FOR VISIT: Female, 80 years old RUQ PAIN TECHNIQUE: Ultrasound evaluation of the right upper quadrant was performed with real-time and static matthews-scale imaging. TECHNICAL QUALITY: Adequate. COMPARISON: None. FINDINGS: Liver: The liver measures 16.1 cm. There is normal echogenicity of the liver. The bile ducts are within normal limits. There is hepatic color flow. The direction of portal flow is hepatopetal. There is no demonstrated mass lesion. Gallbladder: Normal distended gallbladder. The gallbladder wall measures 2.2 mm. There is a negative sonographic Chauhan''s sign. There is no pericholecystic fluid. There are no gallstones. Common Bile Duct (C.B.D.): The common bile duct measures 4.2 mm. Pancreas: Normal size of the head, body of the pancreas. The tail portion is obscured due to overlying bowel gas. There is normal echogenicity of the pancreas. There is no demonstrated pancreatic mass or cyst. Right Kidney: Normal size of the right kidney. The right kidney measures 10.5 cm x 5 cm x 4.7 cm. Normal renal cortex. The right cortex measures 1.3 cm. 1.2 cm x 0.8 cm x 0.8 cm renal cysts. There is no right hydronephrosis. US/Abdomen Limited IMPRESSION: Small right renal cyst. Electronically Signed: Endy Forbes MD at 13:35 EDT , Service support ,
[2020-09-20 11:59] LABS: AST(SGOT) 25 U/L (15-37); Alanine Aminotransfer ALT/SGPT 28 U/L (13-56); Albumin, Serum 3.7 g/dL (3.2-5.0); Alkaline Phosphatase 126 U/L (45-117); Amylase 79 U/L (25-115); GGTP 43 U/L (5-55); Globulin 3.9 g/dL (2.2-4.2); Lipase 92 U/L (73-393); Protein, Total 7.6 g/dL (6.4-8.2); T4 Total, Thyroxin 9.5 ug/dL (4.8-13.9); Thyroid Stim Hormone (TSH) 0.95 uIU/mL (0.358-3.74)
[2020-09-21 20:28] LABS: Deamidated Gliadin IgA 4 units (0-19); Deamidated Gliadin IgG 1 units (0-19); Immunoglobulin A 175 mg/dL (64-422); t-Transglutaminase IgA <2 U/mL (0-3)
== END ==
PROVIDERS: PCP Nurse Practitioner
DX: R10.11 Right upper quadrant pain (principal); R19.4 Change in bowel habit; K59.00 Constipation, unspecified; K58.9 Irritable bowel syndrome, unspecified; R19.7 Diarrhea, unspecified; R11.0 Nausea
CPT/HCPCS: 36415; 76705; 80076; 82150; 82784; 82977; 83516; 83690; 84436; 84443

== ENCOUNTER → 2020-09-22 06:56 | Outpatient (CLI) | payer MEDICARE, OTHER, SELFPAY ==
[2020-06-17 09:21] VITALS: BMI 33.2
[2020-09-26 21:00] LABS: Calprotectin, Stool 43 ug/g (0-120)
== END ==
PROVIDERS: PCP Nurse Practitioner
DX: R19.4 Change in bowel habit (principal); K58.0 Irritable bowel syndrome with diarrhea; R11.0 Nausea; K58.1 Irritable bowel syndrome with constipation
CPT/HCPCS: 36415; 83993; 87506

== ENCOUNTER → 2020-10-21 09:49 | Outpatient (CLI) | payer MEDICARE, OTHER, SELFPAY ==
[2020-06-17 09:21] VITALS: BMI 33.2
[2020-10-21 12:31] LABS: AST(SGOT) 25 U/L (15-37); Alanine Aminotransfer ALT/SGPT 30 U/L (13-56); Albumin, Serum 3.6 g/dL (3.2-5.0); Alkaline Phosphatase 135 U/L (45-117); Bilirubin, Direct 0.24 mg/dL (0.00-0.30); Globulin 3.9 g/dL (2.2-4.2); Protein, Total 7.5 g/dL (6.4-8.2)
[2020-10-23 16:43] LABS: ANTINUCLEAR ANTIBODIES DIRECT Negative (Negative); Anti-Mitochondrial AB <20.0 Units (0.0-20.0)
[2020-10-24 16:08] LABS: Alkaline Phosphatase, Serum 128 IU/L (48-121); Bone Fraction 24 % (14-68); Liver Fraction 59 % (18-85)
[2020-10-24 18:22] LABS: Anti-Smooth Muscle ABS 40 Units (0-19); Intestinal Fraction 17 % (0-18)
== END ==
PROVIDERS: PCP Nurse Practitioner
DX: R74.8 Abnormal levels of other serum enzymes (principal); R19.7 Diarrhea, unspecified
CPT/HCPCS: 36415; 80076; 83516; 84075; 84080; 86038

== ENCOUNTER → 2020-11-29 16:25 | Outpatient (CLI) | payer MEDICARE, OTHER, SELFPAY ==
[2020-11-29 15:43] VITALS: BMI 35.6
[2020-11-29 17:55] LABS: Anion Gap 5 (5-15); BUN 17 mg/dL (7-18); BUN/Creat Ratio 11.9 RATIO (10-20); Calcium,Total 9.3 mg/dL (8.5-10.1); Chloride 101 mmol/L (98-107); Creatinine, Serum 1.43 mg/dL (0.55-1.02); EST Glomerular Filtration Rate 37 mL/min (>60); Est Glom Filt Rate - Afr Amer 45 mL/min (>60); Glucose 158 mg/dL (74-106); Potassium 4.1 mmol/L (3.5-5.1); Sodium Level 137 mmol/L (136-145)
[2020-11-29 17:56] LABS: BNP,B-Type NATRIURETIC PEPTIDE 47.5 pg/mL (0-100)
== END ==
PROVIDERS: PCP Nurse Practitioner; Referring Provider Internal Medicine Cardiovascular Disease; Visit Provider Internal Medicine Cardiovascular Disease
DX: R06.02 Shortness of breath (principal); I10 Essential (primary) hypertension; Z95.1 Presence of aortocoronary bypass graft
CPT/HCPCS: 36415; 80048; 83880

== ENCOUNTER → 2021-01-23 09:34 | Outpatient (CLI) | payer MEDICARE, OTHER, SELFPAY ==
[2021-01-23 11:19] LABS: Anion Gap 8 (5-15); BUN 15 mg/dL (7-18); BUN/Creat Ratio 11.3 RATIO (10-20); Calcium,Total 9.3 mg/dL (8.5-10.1); Chloride 102 mmol/L (98-107); Creatinine, Serum 1.33 mg/dL (0.55-1.02); EST Glomerular Filtration Rate 41 mL/min (>60); Est Glom Filt Rate - Afr Amer 49 mL/min (>60); Glucose 143 mg/dL (74-106); Potassium 4.1 mmol/L (3.5-5.1); Sodium Level 138 mmol/L (136-145)
== END ==
PROVIDERS: PCP Nurse Practitioner; Visit Provider Nurse Practitioner Family
DX: E11.42 Type 2 diabetes mellitus with diabetic polyneuropathy (principal)
CPT/HCPCS: 36415; 80048

== ENCOUNTER 2021-04-24 09:34 | Outpatient (CLI) | payer MEDICARE, OTHER, SELFPAY ==
[2021-04-24 10:38] LABS: Absolute Lymphocyte Count 1.72 X10^3/uL (0.83-4.51); Absolute Neutrophil Count 3.4 X10^3/uL (2.0-7.7); Basophil# 0.03 X10^3/uL; Basophil% 0.5 % (0-1); Eosinophil# 0.12 X10^3/uL; Eosinophils% 2.1 % (0-5); Hematocrit 41.8 % (37-47); Hemoglobin 12.8 g/dL (12.0-15.0); Lymphocyte # 1.72 X10^3/ul (0.83-4.51); Lymphocyte % 29.6 % (19-41); Mean Corp Hgb Conc 30.6 g/dL (32-36); Mean Corpuscular Hgb 28.2 pg (27.0-32.0); Mean Corpuscular Volume 92.1 fL (81-99); Mean Platelet Vol. 11.4 fl (6.2-12.0); Monocyte# 0.54 X10^3/uL; Monocyte% 9.3 % (0-10); NRBC Flagged by Analyzer 0 % (0-5); Neutrophil # 3.38 X10^3/uL (2.7-7.7); Neutrophil % 58.2 % (47-70); Platelet Count 188 K/mm3 (150-450); RBC Distribution Width CV 14.5 % (11.6-14.6); Red Blood Count 4.54 M/mm3 (4.2-5.4); White Blood Count 5.8 K/mm3 (4.4-11.0)
[2021-04-24 11:10] LABS: Microalbumin,Random Urine 8.9 mg/L (NO RANGE EST.); Microalbumin:Creatinine Ratio 8.3 mg/g CRE (<30 mg/g CRE)
[2021-04-24 12:08] LABS: ALB/GLOB Ratio 0.8 RATIO (0.9-2.4); AST(SGOT) 24 U/L (15-37); Alanine Aminotransfer ALT/SGPT 29 U/L (13-56); Albumin, Serum 3.4 g/dL (3.2-5.0); Alkaline Phosphatase 115 U/L (45-117); Anion Gap 5 (5-15); BUN 14 mg/dL (7-18); BUN/Creat Ratio 11.3 RATIO (10-20); Calcium,Total 8.8 mg/dL (8.5-10.1); Chloride 106 mmol/L (98-107); Cholesterol 117 mg/dL (200); Creatinine, Serum 1.24 mg/dL (0.55-1.02); EST Glomerular Filtration Rate 44 mL/min (>60); Est Glom Filt Rate - Afr Amer 53 mL/min (>60); Glucose 132 mg/dL (74-106); High Density Lipoprotein 51 mg/dL; Potassium 3.8 mmol/L (3.5-5.1); Protein, Total 7.4 g/dL (6.4-8.2); Sodium Level 141 mmol/L (136-145); Thyroid Stim Hormone (TSH) 1.06 uIU/mL (0.358-3.74); Triglycerides 97 mg/dL; Very Low Density Lipoprotein 19 mg/dL (5-40)
[2021-04-24 13:14] LABS: Vitamin B12 896 pg/mL (211-911); Vitamin D,25 Hydroxy 93.8 ng/mL
== END 2021-04-24 23:59 | disposition short-term general hospital (02) ==
PROVIDERS: PCP Nurse Practitioner; Referring Provider Nurse Practitioner; Visit Provider Nurse Practitioner
DX: E55.9 Vitamin D deficiency, unspecified (principal); E53.8 Deficiency of other specified B group vitamins; I10 Essential (primary) hypertension
CPT/HCPCS: 36415; 80053; 80061; 82043; 82306; 82570; 82607; 82746; 84443; 85025

== ENCOUNTER → 2021-06-15 09:37 | Outpatient (CLI) | payer MEDICARE, OTHER, SELFPAY ==
[2021-06-15 10:57] LABS: AST(SGOT) 25 U/L (15-37); Alanine Aminotransfer ALT/SGPT 28 U/L (13-56); Albumin, Serum 3.8 g/dL (3.2-5.0); Alkaline Phosphatase 135 U/L (45-117); Bilirubin, Direct 0.28 mg/dL (0.00-0.30); Globulin 4.2 g/dL (2.2-4.2)
[2021-06-16 15:08] LABS: PROEL- A/G Ratio 1.1 (0.7-1.7); PROEL- Albumin 3.8 g/dL (2.9-4.4); PROEL- Alpha-1 Globulin 0.2 g/dL (0.0-0.4); PROEL- Alpha-2 Globulin 1.2 g/dL (0.4-1.0); PROEL- Gamma Globulin 1.1 g/dL (0.4-1.8); PROEL- Globulin, Total 3.5 g/dL (2.2-3.9); PROEL- TOTAL PROTEIN 7.3 g/dL (6.0-8.5)
[2021-06-16 18:54] LABS: ANTINUCLEAR ANTIBODIES DIRECT Negative (Negative); Anti-Mitochondrial AB <20.0 Units (0.0-20.0)
[2021-06-16 18:55] LABS: Anti-Smooth Muscle ABS 42 Units (0-19)
== END ==
PROVIDERS: PCP Nurse Practitioner
DX: R74.8 Abnormal levels of other serum enzymes (principal); E80.7 Disorder of bilirubin metabolism, unspecified; R19.7 Diarrhea, unspecified; K21.9 Gastro-esophageal reflux disease without esophagitis; Z86.010 Personal history of colon polyps
CPT/HCPCS: 36415; 80076; 83516; 84165; 86038

== ENCOUNTER 2021-07-28 08:53 | Outpatient (CLI) | payer MEDICARE, OTHER, SELFPAY ==
--- NOTE | 2021-07-28 08:56 | US_ITS ---
STUDY: RENAL ULTRASOUND - COMPLETE REASON FOR EXAM: Female, 81 years old. STAGE 3B KIDNEY DISEASE TECHNIQUE: Ultrasound evaluation of the kidneys was performed with real-time and static riley-scale imaging. COMPARISON: None. FINDINGS: RIGHT KIDNEY: Normal location of the right kidney, which is normal in size. The right kidney measures 10.9 cm x 4.8 cm x 5.8 cm. There is a normal cortex of the right kidney. The renal cortex measures 1.7 cm. There is a 1.2 cm x 1.3 cm x 0.9 cm cyst in the lateral aspect of the kidney. There are no right renal calculi. There is no right hydronephrosis. DISTAL RIGHT URETER: There is non-visualization of the distal right ureter. There is no demonstrated right ureterovesical junction calculus. There is a visualized right ureteral jet. LEFT KIDNEY: Normal location of the left kidney, which is normal in size. The left kidney measures 11.5 cm x 4.9 cm by 5.6 cm. There is a normal cortex of the left kidney. The renal cortex measures 1.4 cm. There is a 1 cm x 0.8 cm x 0.9 cm cyst in the midportion of the kidney. There are no left renal calculi. There is no left hydronephrosis. DISTAL LEFT URETER: There is non-visualization of the distal left ureter. There is no demonstrated left ureterovesical junction calculus. There is a visualized left ureteral jet. BLADDER: The distended urinary bladder has a volume of 160 ml. There is a normal wall thickness of the distended urinary bladder. There is no demonstrated mass within the urinary bladder. There are no demonstrated bladder calculi. US/Kidney and Bladder IMPRESSION: Small bilateral renal cysts. Electronically Signed: Endy Forbes MD at 12:20 EDT ,
== END 2021-07-28 23:59 | disposition home or self-care (01) ==
LOC: US 08:55
PROVIDERS: PCP Nurse Practitioner; Referring Provider Internal Medicine Nephrology; Visit Provider Internal Medicine Nephrology
DX: N18.32 Chronic kidney disease, stage 3b (principal)
CPT/HCPCS: 76770

== ENCOUNTER → 2021-10-03 | Outpatient (CLI) | payer MEDICARE, OTHER, SELFPAY ==
[2021-10-03 09:30] LABS: Albumin, Serum 3.9 g/dL (3.2-5.0); BUN 21 mg/dL (7-18); BUN/Creat Ratio 17.4 RATIO (10-20); Calcium,Total 9.3 mg/dL (8.5-10.1); Creatinine, Serum 1.21 mg/dL (0.55-1.02); EST Glomerular Filtration Rate 45 mL/min (>60); Est Glom Filt Rate - Afr Amer 55 mL/min (>60); Globulin 3.9 g/dL (2.2-4.2); Glucose 100 mg/dL (74-106); Phosphorus 3.2 mg/dL (2.5-4.9); Protein, Total 7.8 g/dL (6.4-8.2)
[2021-10-03 09:31] LABS: AST(SGOT) 30 U/L (15-37); Alanine Aminotransfer ALT/SGPT 33 U/L (13-56); Alkaline Phosphatase 109 U/L (45-117); Anion Gap 10 (5-15); Bilirubin, Direct 0.32 mg/dL (0.00-0.30); Chloride 103 mmol/L (98-107); Cholesterol 121 mg/dL (200); High Density Lipoprotein 47 mg/dL; Potassium 3.8 mmol/L (3.5-5.1); Sodium Level 139 mmol/L (136-145); Thyroid Stim Hormone (TSH) 1.11 uIU/mL (0.358-3.74); Triglycerides 126 mg/dL; Very Low Density Lipoprotein 25 mg/dL (5-40)
[2021-10-03 09:34] LABS: Vitamin B12 1165 pg/mL (211-911)
== END | disposition home or self-care (01) ==
LOC: LAB 08:32
PROVIDERS: PCP Nurse Practitioner; Referring Provider Internal Medicine; Visit Provider Internal Medicine
DX: E78.00 Pure hypercholesterolemia, unspecified (principal); N18.32 Chronic kidney disease, stage 3b; E53.8 Deficiency of other specified B group vitamins; G62.9 Polyneuropathy, unspecified; R30.0 Dysuria
CPT/HCPCS: 36415; 80048; 80061; 80076; 82607; 84100; 84443; 87086; 87088

== ENCOUNTER → 2021-11-16 | Outpatient (CLI) | payer MEDICARE, OTHER, SELFPAY ==
--- NOTE | 2021-11-16 13:15 | BI_ITS ---
MAMMOGRAPHY - BILATERAL SCREENING 3-D TOMOSYNTHESIS REASON FOR EXAM: Female, 81 years old. Routine screening PERTINENT HISTORY: No significant family history. TECHNIQUE: 2-D mammograms and 3-D Tomosynthesis of the breast (s) were performed. CAD was performed. COMPARISON: 12/02/2020 FINDINGS: The breast composition is composed of scattered fibroglandular density. Scattered benign calcifications are seen. No dense spiculated masses or suspicious microcalcifications are identified. No architectural distortion is identified. There is no skin thickening or retraction. There has been no significant change since the prior study. BI/SCRN MAMM (CAD)W/JUDIE BILAT IMPRESSION: No mammographic signs of malignancy. Routine yearly mammograms recommended. ASSESSMENT CATEGORY: BIRADS Category 2: Benign. A letter regarding these results will be sent to the patient by the facility within 30 days. FOLLOW UP RECOMMENDATION: Yearly follow up mammogram recommended. (A) Approximately 10% of breast cancers are not detected by mammography. A normal mammogram should not delay biopsy of a clinically suspicious abnormality. Electronically Signed: Natan Jama MD at 12:52 EDT ,
== END | disposition home or self-care (01) ==
LOC: OPBI 13:13
PROVIDERS: PCP Nurse Practitioner Family; Referring Provider Nurse Practitioner Family; Visit Provider Nurse Practitioner Family
DX: Z12.31 Encounter for screening mammogram for malignant neoplasm of breast (principal)
CPT/HCPCS: 77063; 77067

== ENCOUNTER → 2021-12-15 | Outpatient (CLI) | payer MEDICARE, OTHER, SELFPAY ==
[2021-12-15 09:50] LABS: AST(SGOT) 24 U/L (15-37); Alanine Aminotransfer ALT/SGPT 28 U/L (13-56); Albumin, Serum 3.7 g/dL (3.2-5.0); Alkaline Phosphatase 107 U/L (45-117); Bilirubin, Direct 0.31 mg/dL (0.00-0.30); Globulin 3.9 g/dL (2.2-4.2); Protein, Total 7.6 g/dL (6.4-8.2)
[2021-12-19 15:07] LABS: PROEL- A/G Ratio 1.1 (0.7-1.7); PROEL- Albumin 3.6 g/dL (2.9-4.4); PROEL- Alpha-1 Globulin 0.2 g/dL (0.0-0.4); PROEL- Beta Globulin 0.9 g/dL (0.7-1.3); PROEL- Globulin, Total 3.2 g/dL (2.2-3.9); PROEL- TOTAL PROTEIN 6.8 g/dL (6.0-8.5)
[2021-12-20 08:27] LABS: ANTINUCLEAR ANTIBODIES DIRECT Negative (Negative); Anti-Mitochondrial AB <20.0 Units (0.0-20.0)
[2021-12-20 08:37] LABS: Anti-Smooth Muscle ABS 39 Units (0-19)
== END | disposition home or self-care (01) ==
PROVIDERS: PCP Nurse Practitioner Family
DX: R79.89 Other specified abnormal findings of blood chemistry (principal)
CPT/HCPCS: 36415; 80076; 83516; 84165; 86038

== ENCOUNTER → 2022-02-07 | Outpatient (CLI) | payer MEDICARE, OTHER, SELFPAY ==
[2022-02-07 09:45] LABS: Hematocrit 41.7 % (37-47); Hemoglobin 13.1 g/dL (12.0-15.0); Mean Corp Hgb Conc 31.4 g/dL (32-36); Mean Corpuscular Volume 92.5 fL (81-99); Mean Platelet Vol. 11.3 fl (6.2-12.0); Platelet Count 176 K/mm3 (150-450); RBC Distribution Width CV 13.8 % (11.6-14.6); RBC Distribution Width SD 47.4 fl (35.1-43.9); Red Blood Count 4.51 M/mm3 (4.2-5.4); White Blood Count 5.5 K/mm3 (4.4-11.0)
[2022-02-07 09:53] LABS: Protein, Urine (Random) 13.7 mg/dL (<11.9); Protein:Creat Ratio 235 mg/g CRE (0-200)
[2022-02-07 10:04] LABS: Albumin, Serum 3.9 g/dL (3.2-5.0); BUN 20 mg/dL (7-18); BUN/Creat Ratio 16.8 RATIO (10-20); Calcium,Total 9.4 mg/dL (8.5-10.1); Chloride 105 mmol/L (98-107); Creatinine, Serum 1.19 mg/dL (0.55-1.02); EST Glomerular Filtration Rate 46 mL/min (>60); Est Glom Filt Rate - Afr Amer 56 mL/min (>60); Glucose 125 mg/dL (74-106); Phosphorus 2.9 mg/dL (2.5-4.9); Potassium 3.9 mmol/L (3.5-5.1); Sodium Level 139 mmol/L (136-145)
[2022-02-07 10:06] LABS: Vitamin D,25 Hydroxy 72.4 ng/mL
[2022-02-07 10:21] LABS: PTHIN 83.3 pg/mL (18.4-80.1)
== END | disposition home or self-care (01) ==
LOC: LAB 08:56
PROVIDERS: PCP Nurse Practitioner Family; Visit Provider Internal Medicine Nephrology
DX: N18.32 Chronic kidney disease, stage 3b (principal)
CPT/HCPCS: 36415; 80069; 82306; 82570; 83970; 84156; 85027

== ENCOUNTER → 2022-03-29 | Outpatient (CLI) | payer MEDICARE, OTHER, SELFPAY ==
--- NOTE | 2022-03-29 09:23 | RAD_ITS ---
STUDY: X-RAY CHEST REASON FOR EXAM: Female, 82 years old. Fever and cough TECHNIQUE: PA and lateral views of the chest. COMPARISON: 10/22/2019 FINDINGS: Lungs are expanded, without a superimposed process. Stable calcified granulomata. There is no demonstrated pleural abnormality. Sternal cerclage wires and vascular clips are present from a prior sternotomy and coronary artery bypass graft procedure (CABG). Normal mediastinum and soto. Normal visualized pulmonary arteries. Normal visualized aortic arch and descending thoracic aorta. There are diffuse degenerative changes of the visualized thoracic spine. Normal visualized ribs, clavicles, and shoulders. There is no demonstrated abnormality of the visualized soft tissue structures of the upper abdomen. RAD/Chest PA and Lateral IMPRESSION: Chronic interstitial changes and old granulomatous calcifications. No acute pulmonary process Electronically Signed: Natan Jama MD at 13:48 EST ,
[2022-03-29 10:34] LABS: BNP,B-Type NATRIURETIC PEPTIDE 65.1 pg/mL (0-100)
== END | disposition home or self-care (01) ==
PROVIDERS: PCP Nurse Practitioner Family; Referring Provider Physician Assistant Medical; Visit Provider Physician Assistant Medical
DX: R06.02 Shortness of breath (principal); R50.9 Fever, unspecified; R05.9 Cough, unspecified
CPT/HCPCS: 36415; 71046; 83880

== ENCOUNTER → 2022-04-04 | Outpatient (CLI) | payer MEDICARE, OTHER, SELFPAY ==
--- NOTE | 2022-04-04 13:55 | ECHOCS_ITS ---
Reason For Study: F[place] Procedure This was a 2D Doppler, Color Flow transthoracic echocardiogram. The study was technically difficult. Contrast injection was performed. Exam performed in department. Left Ventricle Normal LV size. Left ventricular systolic function is normal. The estimated ejection fraction is 60 %. Stage 1 diastolic dysfunction. No regional wall motion abnormalities noted. Right Ventricle Normal RV size. Normal systolic function. Atria Normal left atrium. Normal right atrium. Mitral Valve Normal mitral valve. Tricuspid Valve Normal tricuspid valve. Aortic Valve Normal aortic valve. Trisinus/trileaflet aortic valve. Pulmonic Valve The pulmonic valve is not well visualized. Great Vessels Normal aortic root. The pulmonary artery is normal size. Normal inferior vena cava. Pericardium/Pleural No pericardial effusion. Medication 20 gauge I.V. with prn adaptor inserted into right arm. Diluted definity 2.5ml given slow IV push to enhance endocardial definition. MMode/2D Measurements & Calculations LVIDd: 4.8 cm IVSd: 0.83 cm Ao root diam: 3.5 cm LVIDs: 3.3 cm LVPWd: 0.91 cm LA dimension: 4.0 cm RVDd: 4.1 cm FS: 30.6 % LAV(MOD-bp): 54.0 ml LA A4 area: 16.8 cm2 RA A4 area: 17.7 cm2 LAV(MOD-bp) Indexed: 27.4 ml/m2 LAV(MOD-sp2): 50.5 ml LAV(MOD-sp4): 46.1 ml Time Measurements MV dec time: 0.18 sec Doppler Measurements & Calculations MV E max duke: 70.2 cm/sec Lat Peak E' Duke: 8.7 cm/sec Med Peak E' Duke: 7.8 cm/sec MV A max duke: 76.4 cm/sec E/E' lat: 8.1 E/E' med: 9.0 MV E/A: 0.92 MV V2 max: 92.8 cm/sec MV P1/2t max duke: 82.6 cm/sec Ao V2 max: 122.7 cm/sec MV max P.4 mmHg MV P1/2t: 57.8 msec Ao max P.0 mmHg MV V2 mean: 45.6 cm/sec MV dec slope: 419.0 cm/sec2 Ao V2 mean: 86.8 cm/sec MV mean P.0 mmHg Ao mean P.4 mmHg MV V2 VTI: 25.5 cm MVA(P1/2t): 3.8 cm2 Ao V2 VTI: 29.5 cm AV (velocity ratio): 0.84 LV V1 max: 100.3 cm/sec PA V2 max: 121.6 cm/sec TR max duke: 250.2 cm/sec LV V1 max P.0 mmHg PA V2 mean: 70.3 cm/sec TR max P.0 mmHg LV V1 mean P.2 mmHg LV V1 mean: 69.4 cm/sec LV V1 VTI: 24.9 cm ECHO/Echo Complete W/ Contrast Interpretation Summary Normal LV size. Left ventricular systolic function is normal. The estimated ejection fraction is 60 %. Stage 1 diastolic dysfunction. Contrast injection was performed. Ordering Physician: Anisa Ogden Referring Physician: Anisa Ogden Performed By: Ambrosio Byrne RCS
== END | disposition home or self-care (01) ==
LOC: CVS 13:54
PROVIDERS: PCP Nurse Practitioner Family; Referring Provider Physician Assistant Medical; Visit Provider Physician Assistant Medical
DX: I25.10 Atherosclerotic heart disease of native coronary artery without angina pectoris (principal); R06.09 Other forms of dyspnea
CPT/HCPCS: 93306; Q9957; A4216; C8929

== ENCOUNTER → 2022-05-04 | Outpatient (CLI) | payer MEDICARE, OTHER, SELFPAY ==
--- NOTE | 2022-05-04 15:51 | STRESSREP_ITS ---
Stress Test Report Exercise myocardial perfusion stress test. 82-year-old lady with a history of dyspnea on exertion Stress protocol: Resting EKG demonstrates normal sinus rhythm with a rate of 62 bpm resting blood pressure is 132/68 mmHg. The patient exercised according to the regular Bentley protocol for a total duration of 2 minutes and 47 seconds attaining a maximum heart rate of 141 bpm which was 102% of maximum predicted heart rate; the maximum workload was 4.6 metabolic equivalents. At rest there were no ST or T wave changes noted to suggest ischemia and at peak exercise upsloping ST changes only were noted which did not meet the criteria for ischemia. No clinical angina was noted the test was terminated due to the target heart rate being achi eved/fatigue. The peak blood pressure was 180/70 mmHg. Rate-pressure product was 19,100. Myocardial perfusion protocol. 11.4 mCi of technetium 99m sestamibi was injected at rest. The patient exerc ised according to regular Bentley protocol for total duration of 2 minutes and 47 seconds and at peak exercise 34.1 mCi of technetium 99m sestamibi was injected stress images were obtained stress and rest images were reconstructed in comparing the short axis vertical long and horizontal long axis. Gated images were also obtained. Perfusion SPECT analysis: Review of the stress images demonstrate normal uptake of tracer noted in all areas of the myocardium. The resting images similarly demonstrate normal uptake of tracer noted in all areas of the myocardium. No areas of reversibility are noted to suggest ischemia no previous infarct was noted. Gated SPECT analysis: The gated ejection fraction is 78%. Conclusion: Normal exercise myocardial perfusion stress test at a low workload Preserved ejection fraction. The low workload may affect sensitivity for detection of ischemia
== END | disposition home or self-care (01) ==
LOC: CVS 07:31
PROVIDERS: PCP Nurse Practitioner Family; Referring Provider Physician Assistant Medical; Visit Provider Physician Assistant Medical
DX: R06.02 Shortness of breath (principal)
CPT/HCPCS: 78452; 93017; A9500; A4216

== ENCOUNTER → 2022-07-10 | Outpatient (CLI) | payer MEDICARE, OTHER, SELFPAY ==
[2022-07-10 11:34] LABS: Anion Gap 4 (5-15); BUN 18 mg/dL (7-18); BUN/Creat Ratio 13.7 RATIO (10-20); Calcium,Total 9.2 mg/dL (8.5-10.1); Chloride 107 mmol/L (98-107); Creatinine, Serum 1.31 mg/dL (0.55-1.02); EST Glomerular Filtration Rate 41 mL/min (>60); Est Glom Filt Rate - Afr Amer 50 mL/min (>60); Glucose 130 mg/dL (74-106); Potassium 4.5 mmol/L (3.5-5.1); Sodium Level 138 mmol/L (136-145)
== END | disposition home or self-care (01) ==
LOC: LAB 09:34
PROVIDERS: PCP Nurse Practitioner Family; Referring Provider Physician Assistant Medical; Visit Provider Physician Assistant Medical
DX: R06.02 Shortness of breath (principal)
CPT/HCPCS: 36415; 80048

== ENCOUNTER → 2022-08-07 | Outpatient (CLI) | payer MEDICARE, OTHER, SELFPAY ==
--- NOTE | 2022-08-07 12:06 | BD_ITS ---
STUDY: DUAL ENERGY X-RAY ABSORPTIOMETRY / DXA REASON FOR EXAM: Female, 82 years old. M810 TECHNIQUE: Bone Mineral Density (BMD) measurements of lumbar spine and bilateral hips were obtained. COMPARISON: Comparison is made with prior study August 02, 2020. FINDINGS: Lumbar Spine (L1-L4): g/cm2 (1.040) / T-score (-0.1) / Z-score (2.7) Findings are suggestive of normal bone density with a low fracture risk. Left Femur Total: g/cm2 (0.872) / T-score (-0.6) / Z-score (1.6) Left Femoral Neck: g/cm2 (0.708) / T-score (-1.3) / Z-score (1.1) Right Femur Total: g/cm2 (0.861) / T-score (-0.7) / Z-score (1.5) Right Femoral Neck: g/cm2 (0.768) / T-score (-0.7) / Z-score (1.7) The T-Scores on the most recent prior examination were: Lumbar Spine (L1-L4): There has been worsening of bone density since the previous examination. Left Femur Total: which represents an improvement of 0.2%. Right Femur Total: which represents an improvement of 3.2%. BD/Dexa Bone Density Study IMPRESSION: The patient is considered osteopenic as outlined below according to World Parker Organization (WHO) criteria with a low fracture risk. There has been improvement of bone density since the previous examination. Reference Information: The T-score is the number of standard deviations above or below the standard which is normal for young adults at their peak bone mineral density. The World Health Organization (WHO) interprets the T-scores as follows: Above -1 Normal bone density Between -1 and -2.5 Osteopenia Equal to / or below -2.5 Osteoporosis As a practical clinical guideline, osteopenia may be graded as follows: Mild -1 through -1.5 Moderate -1.6 through -2.0 Severe -2.1 through -2.4 The Z-score is the number of standard deviations above or below age-matched controls. A Z-score of less than -1.5 would be considered abnormal. References: 1. NIH Osteoporosis and Related Bone Diseases www osteo.org 2. International Society for Clinical Densitometry www iscd.org 3. National Osteoporosis Foundation www nof.org Electronically Signed: Endy Forbes MD at 12:38 EDT ,
== END | disposition home or self-care (01) ==
LOC: OPBD 11:58
PROVIDERS: PCP Nurse Practitioner Family; Referring Provider Nurse Practitioner Family; Visit Provider Nurse Practitioner Family
DX: M81.0 Age-related osteoporosis without current pathological fracture (principal)
CPT/HCPCS: 77080

== ENCOUNTER 2022-09-20 10:26 | Outpatient (RCR) | payer MEDICARE, OTHER, SELFPAY | END 2022-10-12 23:59 | LOC: DC 10:26 | PROVIDERS: PCP Nurse Practitioner Family; Referring Provider Internal Medicine Pulmonary Disease; Visit Provider Internal Medicine Pulmonary Disease | DX: E66.09 Other obesity due to excess calories (principal); E11.9 Type 2 diabetes mellitus without complications; Z68.34 Body mass index [BMI] 34.0-34.9, adult; G47.33 Obstructive sleep apnea (adult) (pediatric); J45.909 Unspecified asthma, uncomplicated; G47.61 Periodic limb movement disorder | CPT/HCPCS: 97802 ==

== ENCOUNTER 2022-11-29 10:23 | Outpatient (RCR) | payer MEDICARE, OTHER, SELFPAY | END 2022-12-13 23:59 | LOC: DC 10:23 | PROVIDERS: PCP Nurse Practitioner Family; Referring Provider Internal Medicine Pulmonary Disease; Visit Provider Internal Medicine Pulmonary Disease | DX: E11.9 Type 2 diabetes mellitus without complications (principal); E66.09 Other obesity due to excess calories; Z68.34 Body mass index [BMI] 34.0-34.9, adult; G47.33 Obstructive sleep apnea (adult) (pediatric); J45.909 Unspecified asthma, uncomplicated | CPT/HCPCS: 97803 ==

== ENCOUNTER → 2022-12-26 | Outpatient (CLI) | payer MEDICARE, OTHER, SELFPAY ==
[2022-12-26 10:41] LABS: AST(SGOT) 22 U/L (15-37); Alanine Aminotransfer ALT/SGPT 29 U/L (13-56); Albumin, Serum 3.6 g/dL (3.2-5.0); Alkaline Phosphatase 98 U/L (45-117); Bilirubin, Direct 0.31 mg/dL (0.00-0.30); Globulin 3.8 g/dL (2.2-4.2); Protein, Total 7.4 g/dL (6.4-8.2)
== END | disposition home or self-care (01) ==
PROVIDERS: PCP Nurse Practitioner Family
DX: R74.01 Elevation of levels of liver transaminase levels (principal)
CPT/HCPCS: 36415; 80076

== ENCOUNTER → 2023-01-22 | Outpatient (CLI) | payer MEDICARE, OTHER, SELFPAY ==
[2023-01-22 12:43] LABS: Anion Gap 5 (5-15); BUN 22 mg/dL (7-18); BUN/Creat Ratio 17.1 RATIO (10-20); Calcium,Total 9.1 mg/dL (8.5-10.1); Chloride 104 mmol/L (98-107); Creatinine, Serum 1.29 mg/dL (0.55-1.02); EST Glomerular Filtration Rate 42 mL/min (>60); Est Glom Filt Rate - Afr Amer 51 mL/min (>60); Glucose 156 mg/dL (74-106); Potassium 4.5 mmol/L (3.5-5.1); Sodium Level 136 mmol/L (136-145)
[2023-01-22 12:50] LABS: BNP,B-Type NATRIURETIC PEPTIDE 23.5 pg/mL (0-100)
== END | disposition home or self-care (01) ==
LOC: LAB 11:05
PROVIDERS: PCP Nurse Practitioner Family; Referring Provider Internal Medicine Cardiovascular Disease; Visit Provider Internal Medicine Cardiovascular Disease
DX: R06.02 Shortness of breath (principal)
CPT/HCPCS: 36415; 80048; 83880

== ENCOUNTER 2023-02-28 09:45 | Outpatient (RCR) | payer MEDICARE, OTHER, SELFPAY | END 2023-03-14 23:59 | LOC: DC 09:45 | PROVIDERS: PCP Nurse Practitioner Family; Referring Provider Internal Medicine Pulmonary Disease; Visit Provider Internal Medicine Pulmonary Disease | DX: E11.9 Type 2 diabetes mellitus without complications (principal); E66.09 Other obesity due to excess calories; Z68.34 Body mass index [BMI] 34.0-34.9, adult; G47.33 Obstructive sleep apnea (adult) (pediatric); J45.909 Unspecified asthma, uncomplicated; G47.61 Periodic limb movement disorder | CPT/HCPCS: 97803 ==

== ENCOUNTER 2023-05-30 09:52 | Outpatient (RCR) | payer MEDICARE, OTHER, SELFPAY | END 2023-06-13 23:59 | LOC: DC 09:52 | PROVIDERS: PCP Nurse Practitioner Family; Referring Provider Internal Medicine Pulmonary Disease; Visit Provider Internal Medicine Pulmonary Disease | DX: E11.9 Type 2 diabetes mellitus without complications (principal); E66.09 Other obesity due to excess calories; Z68.34 Body mass index [BMI] 34.0-34.9, adult; G47.33 Obstructive sleep apnea (adult) (pediatric); J45.909 Unspecified asthma, uncomplicated; G47.61 Periodic limb movement disorder | CPT/HCPCS: 97803 ==

== ENCOUNTER → 2023-07-16 | Outpatient (CLI) | payer MEDICARE, OTHER, SELFPAY ==
[2023-07-16 13:35] LABS: Absolute Lymphocyte Count 1.92 X10^3/uL (0.83-4.51); Absolute Neutrophil Count 5.8 X10^3/uL (2.0-7.7); Basophil# 0.04 X10^3/uL; Basophil% 0.5 % (0-1); Eosinophils% 2.3 % (0-5); Hematocrit 40.5 % (37-47); Lymphocyte # 1.92 X10^3/ul (0.83-4.51); Mean Corp Hgb Conc 32.1 g/dL (32-36); Mean Corpuscular Hgb 29.8 pg (27.0-32.0); Mean Corpuscular Volume 92.9 fL (81-99); Mean Platelet Vol. 11.3 fl (6.2-12.0); Monocyte# 0.76 X10^3/uL; Monocyte% 8.7 % (0-10); NRBC Flagged by Analyzer 0 % (0-5); Neutrophil # 5.78 X10^3/uL (2.7-7.7); Neutrophil % 66.3 % (47-70); Platelet Count 223 K/mm3 (150-450); Red Blood Count 4.36 M/mm3 (4.2-5.4); White Blood Count 8.7 K/mm3 (4.4-11.0)
[2023-07-16 14:24] LABS: ALB/GLOB Ratio 1.1 RATIO (0.9-2.4); AST(SGOT) 23 U/L (15-37); Alanine Aminotransfer ALT/SGPT 28 U/L (13-56); Albumin, Serum 3.9 g/dL (3.2-5.0); Alkaline Phosphatase 115 U/L (45-117); Anion Gap 6 (5-15); BUN 21 mg/dL (7-18); CRP < 2.90 mg/L (0.0-3.0); Calcium,Total 8.9 mg/dL (8.5-10.1); Chloride 106 mmol/L (98-107); EST Glomerular Filtration Rate 35 mL/min (>60); Est Glom Filt Rate - Afr Amer 43 mL/min (>60); Globulin 3.5 g/dL (2.2-4.2); Glucose 159 mg/dL (74-106); Potassium 4.3 mmol/L (3.5-5.1); Protein, Total 7.4 g/dL (6.4-8.2); Sodium Level 138 mmol/L (136-145)
[2023-07-16 20:07] LABS: Erythrocyte Sedimentation Rate 56 mm/hr (0-30)
== END | disposition home or self-care (01) ==
LOC: LABSPEC 13:09
PROVIDERS: PCP Nurse Practitioner Family; Referring Provider Nurse Practitioner Family; Visit Provider Nurse Practitioner Family
DX: R05.9 Cough, unspecified (principal)
CPT/HCPCS: 80053; 85025; 85652; 86140

== ENCOUNTER → 2024-02-28 | Outpatient (CLI) | payer MEDICARE, OTHER, SELFPAY ==
[2024-02-28 09:14] LABS: Absolute Lymphocyte Count 1.77 X10^3/uL (0.83-4.51); Absolute Neutrophil Count 3.6 X10^3/uL (2.0-7.7); Basophil# 0.02 X10^3/uL; Basophil% 0.3 % (0-1); Eosinophil# 0.13 X10^3/uL; Eosinophils% 2.1 % (0-5); Hematocrit 40.6 % (37-47); Hemoglobin 12.8 g/dL (12.0-15.0); Lymphocyte # 1.77 X10^3/ul (0.83-4.51); Lymphocyte % 28.7 % (19-41); Mean Corp Hgb Conc 31.5 g/dL (32-36); Mean Corpuscular Hgb 29.8 pg (27.0-32.0); Mean Corpuscular Volume 94.4 fL (81-99); Mean Platelet Vol. 11.3 fl (6.2-12.0); Monocyte% 9.7 % (0-10); NRBC Flagged by Analyzer 0 % (0-5); Neutrophil # 3.55 X10^3/uL (2.7-7.7); Neutrophil % 57.7 % (47-70); Platelet Count 184 K/mm3 (150-450); RBC Distribution Width CV 13.2 % (11.6-14.6); RBC Distribution Width SD 45.2 fl (35.1-43.9); White Blood Count 6.2 K/mm3 (4.4-11.0)
[2024-02-28 09:33] LABS: Vitamin B12 982 pg/mL (211-911); Vitamin D,25 Hydroxy 74.7 ng/mL
[2024-02-28 10:08] LABS: AST(SGOT) 29 U/L (15-37); Alanine Aminotransfer ALT/SGPT 26 U/L (13-56); Albumin, Serum 3.8 g/dL (3.2-5.0); Alkaline Phosphatase 112 U/L (45-117); Anion Gap 5 (5-15); BUN 19 mg/dL (7-18); BUN/Creat Ratio 15.6 RATIO (10-20); Bilirubin, Direct 0.31 mg/dL (0.00-0.30); Calcium,Total 9.3 mg/dL (8.5-10.1); Chloride 107 mmol/L (98-107); Cholesterol 118 mg/dL (200); Creatinine, Serum 1.22 mg/dL (0.55-1.02); EST Glomerular Filtration Rate 45 mL/min (>60); Est Glom Filt Rate - Afr Amer 54 mL/min (>60); Globulin 3.7 g/dL (2.2-4.2); Glucose 85 mg/dL (74-106); High Density Lipoprotein 56 mg/dL; Potassium 4.1 mmol/L (3.5-5.1); Protein, Total 7.5 g/dL (6.4-8.2); Sodium Level 140 mmol/L (136-145); Thyroid Stim Hormone (TSH) 0.975 uIU/mL (0.358-3.740); Triglycerides 85 mg/dL; Very Low Density Lipoprotein 17 mg/dL (5-40)
[2024-02-28 10:20] LABS: Microalbumin,Random Urine 5.8 mg/L (NO RANGE EST.); Microalbumin:Creatinine Ratio 24.2 mg/g CRE (<30 mg/g CRE)
== END | disposition home or self-care (01) ==
LOC: LAB 08:40
PROVIDERS: PCP Nurse Practitioner Family; Referring Provider Nurse Practitioner Family; Visit Provider Nurse Practitioner Family
DX: E78.00 Pure hypercholesterolemia, unspecified (principal); E11.8 Type 2 diabetes mellitus with unspecified complications; Z79.4 Long term (current) use of insulin; E80.4 Gilbert syndrome; E53.8 Deficiency of other specified B group vitamins; E55.9 Vitamin D deficiency, unspecified
CPT/HCPCS: 36415; 80048; 80061; 80076; 82043; 82306; 82570; 82607; 82746; 84443; 85025

== ENCOUNTER → 2025-03-02 | Outpatient (CLI) | payer MEDICARE, OTHER, SELFPAY ==
[2025-03-02 10:19] LABS: Mucous, Urine 0 SEEN /hpf (<or=2+)
[2025-03-02 12:55] LABS: Color, Urine Yellow (Yellow); Glucose, Dipstick Normal (Normal); Ketone-Dipstick Negative (Negative); Leukocyte Esterase-Dipstick 500 /ul (Negative); Nitrite-Dipstick Positive (Negative); Occult Blood-Urine 25 /ul (Negative); Protein-Dipstick 30 mg/dl (Negative); Specific Gravity, Urine 1.015 (1.002-1.030); Urine Bilirubin Dipstick Negative (Negative)
[2025-03-02 13:09] LABS: Red Blood Cells-Urine 0-5 SEEN /hpf (0-5); Squamous Epithelial Cells - UA 10-25 SEEN /hpf (5-10)
== END | disposition home or self-care (01) ==
LOC: CIMLAB 10:16
PROVIDERS: PCP Nurse Practitioner Family; Referring Provider Nurse Practitioner Family; Visit Provider Nurse Practitioner Family
DX: N39.0 Urinary tract infection, site not specified (principal)
CPT/HCPCS: 81001; 87077; 87086; 87088; 87186